=== PATIENT | female | born 1940 | race Caucasian/White ===

== ENCOUNTER → 2016-05-24 | Outpatient (CLI) | payer OTHER ==
[~2016-05-24] MED LIST: ESTR0.3T PO; LRT5 PO; SIMV20TA2 PO; TEMA30CA4 PO
[2016-05-24 17:50] LABS: ALT/SGPT 31 U/L (12-78); AST/SGOT 25 U/L (15-37); BLOOD UREA NITROGEN 12 mg/dl (7-18); CARBON DIOXIDE 27 mmol/L (21-32); CHLORIDE 103 mmol/L (98-107); CHOLESTEROL 185 mg/dl (0-200); CREATININE 0.71 mg/dl (0.60-1.20); GLUCOSE 92 mg/dl (70-99); POTASSIUM 4.3 mmol/L (3.5-5.1); SODIUM 137 mmol/L (136-145); TRIGLYCERIDES 123 mg/dl (0-150); VERY LOW DENSITY LIPOPROT CALC 25 mg/dl
[2016-05-24 17:53] LABS: ALB/GLOB RATIO 1.2 (0.9-2); ALKALINE PHOSPHATASE 71 U/L (45-117); CHOLESTEROL/HDL RATIO 2.6; HDL CHOLESTEROL 70 mg/dl; LDL CHOLESTEROL CALCULATED 90 mg/dl
[2016-05-25 06:20] LABS: ESTIMATED AVERAGE GLUCOSE 120 mg/dl; HA1C FLAG Normal (Normal)
== END | disposition home or self-care (01) ==
LOC: C.LABPVFM 10:39
PROVIDERS: ATTEND Nurse Practitioner Family
DX: I10 Essential (primary) hypertension (principal); R73.01 Impaired fasting glucose

== ENCOUNTER → 2016-06-11 | Outpatient (CLI) | payer OTHER | END | disposition home or self-care (01) | LOC: C.MAMM 09:00 | PROVIDERS: ATTEND Nurse Practitioner Family | DX: Z00.00 Encounter for general adult medical examination without abnormal findings (principal); M85.851 Other specified disorders of bone density and structure, right thigh; M85.852 Other specified disorders of bone density and structure, left thigh ==

== ENCOUNTER → 2016-11-25 | Outpatient (CLI) | payer OTHER ==
[2016-11-25 18:40] LABS: ALKALINE PHOSPHATASE 86 U/L (45-117); ALT/SGPT 29 U/L (12-78); AST/SGOT 21 U/L (15-37); BLOOD UREA NITROGEN 11 mg/dl (7-18); BUN/CREATININE RATIO 17.5 (10-20); CALCIUM 8.7 mg/dl (8.5-10.1); CARBON DIOXIDE 28 mmol/L (21-32); CHLORIDE 104 mmol/L (98-107); CREATININE 0.64 mg/dl (0.60-1.20); GLUCOSE 91 mg/dl (70-99); HDL CHOLESTEROL 50 mg/dl; POTASSIUM 4.2 mmol/L (3.5-5.1); SODIUM 137 mmol/L (136-145)
[2016-11-25 18:41] LABS: CHOLESTEROL 157 mg/dl (0-200); CHOLESTEROL/HDL RATIO 3.1; LDL CHOLESTEROL CALCULATED 79 mg/dl; TRIGLYCERIDES 138 mg/dl (0-150); VERY LOW DENSITY LIPOPROT CALC 28 mg/dl
[2016-11-26 06:05] LABS: ESTIMATED AVERAGE GLUCOSE 126 mg/dl; HA1C FLAG Normal (Normal)
== END | disposition home or self-care (01) ==
LOC: C.LABPVFM 10:53
PROVIDERS: ATTEND Neuromusculoskeletal Medicine & OMM
DX: Z00.00 Encounter for general adult medical examination without abnormal findings (principal); R73.09 Other abnormal glucose; E78.4 Other hyperlipidemia

== ENCOUNTER → 2017-05-27 | Outpatient (CLI) | payer OTHER ==
--- NOTE | 2017-05-27 10:28 | DIAGNOSTIC IMAGING REPORT ---
KUB CLINICAL HISTORY: Constipation. COMPARISON STUDY: None. FINDINGS: Cholecystectomy clips are noted. There is no evidence for a bowel obstruction. There is a moderate to large amount of stool within the colon. There is minimal stool within the rectum. A 3 mm right abdominal calcification could reflect a renal calculus. There is a suspected hiatal hernia. IMPRESSION: 1. No evidence for a bowel obstruction. 2. Moderate to large amount of stool within the colon with minimal stool within the rectum. 3. Suspected hiatal hernia. 4. Possible 3 mm right renal calculus. Electronically signed by: Mark Self M.D. 05/27/2017 10:27 AM Dictated Date/Time: 05/27/2017 10:25 AM
[2017-05-27 13:05] LABS: BLOOD UREA NITROGEN 14 mg/dl (7-18); CARBON DIOXIDE 27 mmol/L (21-32); CREATININE 0.67 mg/dl (0.60-1.20); GLUCOSE 91 mg/dl (70-99); POTASSIUM 4.4 mmol/L (3.5-5.1); SODIUM 138 mmol/L (136-145)
[2017-05-27 13:16] LABS: HEMOGLOBIN A1C 5.7 % (4.5-5.6)
== END | disposition home or self-care (01) ==
LOC: C.RADPV 09:54
PROVIDERS: ATTEND Nurse Practitioner
DX: K59.00 Constipation, unspecified (principal)

== ENCOUNTER → 2017-08-25 | Day surgery (SDC) | payer OTHER ==
[2017-08-13 13:59] VITALS: BMI 28.0
[~2017-08-25] VITALS: Ht 162.6 cm; Wt 74.1 kg
[~2017-08-25] MED LIST changes: -ESTR0.3T PO; +HYDR-4380 PO; +LACT10SO17 PO; +LIDOCAINE HCL 2% 2 ML VIAL (20MG/ML) ONE; +LINA1CAP PO; -LRT5 PO; +PROPOFOL IV EMULSION 10 MG/ML 20 ML VIAL ONE; -TEMA30CA4 PO; +ZOLP5TAB6 PO
--- NOTE | 2017-08-25 10:18 | Endo History and Physical ---
History & Physical Date of Service: August 25, 2017. Chief Complaint: Change in bowel habits Referring Physician: Vannessa Richardson History of Present Illness 76 yo CF who presents for colonoscopy secondary to change in bowel habits. Past Surgical History Hx Cardiac Surgery: No Hx Internal Defibrillator: No Hx Pacemaker: No Hx Abdominal Surgery: Yes (JULIETTE) Hx of Implantable Prosthesis: No Hx Cancer Surgery: No Hx Thoracic Surgery: No Hx Orthopedic: No Hx Urinary Tract Surgery: No Social History Smoking Status: Never Smoker Hx Substance Use: No Hx Alcohol Use: No Allergies Coded Allergies: Penicillins (Verified Allergy, Unknown, UNKNOWN, 08/25/17) Current Medications Reported Home Medications Medications Dose Route/Sig Max Daily Dose Days Date Category Hydrocodone/Acetaminophen (Hydrocodone-Acetaminophen) 1 Tab Tab 1-2 Tabs PO Q4 PRN 08/13/17 Reported Zolpidem Tartrate 5 Mg Tab 1 Tab PO HS PRN 30 08/13/17 Reported Zocor (Simvastatin) 20 Mg Tab 1 Tab PO DAILY 90 08/13/17 Reported Linzess (Linaclotide) 145 Mcg Cap 2 Cap PO DAILY 08/13/17 Reported Chronulac (Lactulose) 10 Gm/15 Ml Syrp 30 Ml PO TID 08/13/17 Reported Zocor (Simvastatin) 20 Mg Tab 20 Mg PO QPM 06/20/10 Reported Vital Signs Weight (Kilograms): 74.09 Height (Feet): 5 Height (Inches): 4 Physical Exam General Appearance: WD/WN, no apparent distress Respiratory/Chest: Auscultation: breath sounds normal Cardiovascular: Heart Auscultation: RRR Abdomen: Bowel Sounds: normal Inspection & Palpation: soft, non-distended, no tenderness, guarding & rebound Assessment and Plan Assessment: 76 yo CF who presents for colonoscopy secondary to change in bowel habits. Plan: Proceed with colonoscopy.
[2017-08-25 10:22] VITALS: Ht 162.6 cm; Wt 74.1 kg
--- NOTE | 2017-08-25 11:30 | Discharge Instructions ---
Endoscopy Patient Instructions Date / Procedure(s) Performed August 25, 2017. Colonoscopy Allergy Information Coded Allergies: Penicillins (Verified Allergy, Unknown, UNKNOWN, 08/25/17) Discharge Date / Findings August 25, 2017. Rectal mass s/p biopsies Diverticulosis Medication Instructions OK to resume all medications today as prescribed Reported Home Medications Medications Dose Route/Sig Max Daily Dose Days Date Category Hydrocodone/Acetaminophen (Hydrocodone-Acetaminophen) 1 Tab Tab 1-2 Tabs PO Q4 PRN 08/13/17 Reported Zolpidem Tartrate 5 Mg Tab 1 Tab PO HS PRN 30 08/13/17 Reported Linzess (Linaclotide) 145 Mcg Cap 2 Cap PO DAILY 08/13/17 Reported Chronulac (Lactulose) 10 Gm/15 Ml Syrp 30 Ml PO TID 08/13/17 Reported Zocor (Simvastatin) 20 Mg Tab 20 Mg PO QPM 06/20/10 Reported Provider Instructions Activity Restrictions - No exercising or heavy lifting for 24 hours. - Do not drink alcohol the day of the procedure. - Do not drive a car or operate machinery until the day after the procedure. - Do not make any important decisions or sign important papers in 24 hours after the procedure. Following Day: - Return to full activity which may include returning to work/school. Diet Start your diet with liquids and light foods (jello, soup, juice, toast). Then eat your usual diet if not nauseated. Treatment For Common After Affects For mild abdominal pain, bloating, or excessive gas: - Rest - Eat lightly - Lie on right side Follow-Up Information Follow-up with [facility] as scheduled Anesthesia Information What You Should Know You have had a procedure that required some medicine to reduce anxiety and discomfort. This treatment is called moderate sedation. After receiving the treatment, you may be sleepy, but you will be able to breathe on your own. The effects of the treatment may last for several hours. Follow these instructions along with Activity/Diet recommendations noted above: * Do NOT do anything where dizziness or clumsiness would be dangerous. * Rest quietly at home today, then you can be up and about tomorrow. * Have a responsible person stay with you the rest of today. * You may have had an I.V. today. If so, you may take the dressing off later today. Recommendations Call your doctor if: * Trouble breathing * Continuous vomiting for more than 24 hours * Temperature above 101 degrees * Severe abdominal pain or bloating * Pain not relieved by pain medicine ordered * There is increased drainage or redness from any incision * A large amount of rectal bleeding greater than 2-3 tablespoons. (If you had a polyp/s removed or have hemorrhoids, a small amount of blood - from the rectum is to be expected.) * You have any unanswered questions or concerns. IN THE EVENT OF A SERIOUS EMERGENCY, GO TO THE NEAREST EMERGENCY ROOM Your discharge instructions were prepared by provider Hieu Kimble. Patient Instructions Signature Page Laverne Dunn Patient (or Guardian) Signature/Date: I have read and understand the instructions given to me by my caregivers. Caregiver/RN/Doctor Signature/Date: The above-named patient and/or guardian has received patient instructions on this date. + Original Patient Signature Page (only) stays with chart. Please make copy for patient.
--- NOTE | 2017-08-25 11:41 | GI REPORT ---
Patient Name: Laverne Dunn Procedure Date: 08/25/2017 10:47 AM Date of : 1940 Admit Type: Outpatient Age: 76 Gender: Female Attending MD: Hieu Kimble DO Procedure: Colonoscopy Providers: Hieu Kimble DO Referring MD: Vannessa Richardson Indications: Change in bowel habits Medicines: Monitored Anesthesia Care Complications: No immediate complications. Estimated Blood Loss: Estimated blood loss: none. Procedure: Pre-Anesthesia Assessment: - Prior to the procedure, a History and Physical was performed, and patient medications and allergies were reviewed. The patient's tolerance of previous anesthesia was also reviewed. The risks and benefits of the procedure and the sedation options and risks were discussed with the patient. All questions were answered, and informed consent was obtained. Prior Anticoagulants: The patient has taken no previous anticoagulant or antiplatelet agents. ASA Grade Assessment: II - A patient with mild systemic disease. After reviewing the risks and benefits, the patient was deemed in satisfactory condition to undergo the procedure. After I obtained informed consent, the scope was passed under direct vision. Throughout the procedure, the patient's blood pressure, pulse, and oxygen saturations were monitored continuously. The scope was introduced through the anus and advanced to the terminal ileum. The colonoscopy was performed without difficulty. The patient tolerated the procedure well. The quality of the bowel preparation was good. The terminal ileum, ileocecal valve, appendiceal orifice, and rectum were photographed. Findings: The perianal and digital rectal examinations were normal. An infiltrative partially obstructing medium-sized mass was found in the rectum. The mass was non-circumferential. The mass measured five cm in length. In addition, its diameter measured thirty mm. Oozing was present. Biopsies were taken with a cold forceps for histology. Multiple small-mouthed diverticula were found in the sigmoid colon. 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 Biopsied. - Diverticulosis in the sigmoid colon. Recommendation: - Resume previous diet. - Continue present medications. - Await pathology results. - Return to primary care physician as previously scheduled. - Perform a CT scan (computed tomography) of chest with contrast, abdomen with contrast and pelvis with contrast at appointment to be scheduled. - Check liver enzymes (AST, ALT, alkaline phosphatase, bilirubin), hemogram with white blood cell count and platelets and CEA today. Heiu Cahy Kimble, DO 08/25/2017 11:40:25 AM This report has been signed electronically. Note Initiated On: 08/25/2017 10:47 AM Number of Addenda: 0 I attest to the content of the Intraoperative Record and orders documented therein, exceptions below {[id number]}
--- NOTE | 2017-08-25 11:45 | Anesthesiology Progress Note ---
Anesthesia Post Op Note Date & Time August 25, 2017 at 11:45 Vital Signs Pain Intensity: 0 Vital Signs Past 12 Hours Date Time Temp Pulse Resp B/P (MAP) Pulse Ox O2 Delivery O2 Flow Rate FiO2 08/25/17 11:38 63 16 117/58 (77) 98 Room Air 08/25/17 11:24 36.4 73 16 93/69 (77) 98 Room Air 08/25/17 10:29 36.4 68 16 125/74 (91) 98 Room Air Notes Mental Status: alert / awake / arousable, participated in evaluation Pt Amnestic to Procedure: Yes Nausea / Vomiting: adequately controlled Pain: adequately controlled Airway Patency, RR, SpO2: stable & adequate BP & HR: stable & adequate Hydration State: stable & adequate Anesthetic Complications: no major complications apparent
[2017-08-25 11:53] VITALS: BP 133/73; PULSE 55; O2SAT 97
[2017-08-25 13:13] LABS: BASO % 0.6 %; BASO ABS # 0.03 K/uL (0-0.2); EOS % 1.4 %; EOS ABS # 0.07 K/uL (0-0.5); HEMATOCRIT 41.4 % (37-47); IG# 0.01 K/uL (0.00-0.02); LYMPH % 33.9 %; LYMPH ABS # 1.71 K/uL (1.2-3.4); MEAN CELL VOLUME 90.6 fL (80-100); MEAN CORPUSCULAR HEMOGLOBIN 30.6 pg (25-34); MEAN CORPUSCULAR HGB CONC 33.8 g/dl (32-36); MEAN PLATELET VOLUME 9.4 fL (7.4-10.4); MONO % 7.1 %; MONO ABS # 0.36 K/uL (0.11-0.59); NEUT % 56.8 %; NEUT ABS # 2.86 K/uL (1.4-6.5); PLATELET COUNT 223 K/uL (130-400); RED CELL DISTRIBUTION WIDTH CV 14.7 % (11.5-14.5); RED CELL DISTRIBUTION WIDTH SD 48.5 fL (36.4-46.3); WHITE BLOOD COUNT 5.04 K/uL (4.8-10.8)
[2017-08-25 13:42] LABS: CALCIUM 8.8 mg/dl (8.5-10.1); CREATININE 0.66 mg/dl (0.60-1.20); POTASSIUM 3.8 mmol/L (3.5-5.1)
[2017-08-25 13:45] LABS: TOTAL PROTEIN 7.2 gm/dl (6.4-8.2)
== END | disposition home or self-care (01) ==
LOC: C.GI 09:44
PROVIDERS: ATTEND Internal Medicine
DX: R19.4 Change in bowel habit (principal); K62.9 Disease of anus and rectum, unspecified; K57.30 Diverticulosis of large intestine without perforation or abscess without bleeding; E78.5 Hyperlipidemia, unspecified; K21.9 Gastro-esophageal reflux disease without esophagitis; M19.90 Unspecified osteoarthritis, unspecified site; F32.9 Major depressive disorder, single episode, unspecified; Z88.0 Allergy status to penicillin; Z90.49 Acquired absence of other specified parts of digestive tract

== ENCOUNTER → 2017-08-27 | Outpatient (CLI) | payer OTHER ==
[~2017-08-27] MED LIST changes: -LIDOCAINE HCL 2% 2 ML VIAL (20MG/ML) ONE; +OPTIRAY 320 IV PRN; -PROPOFOL IV EMULSION 10 MG/ML 20 ML VIAL ONE
--- NOTE | 2017-08-27 16:25 | DIAGNOSTIC IMAGING REPORT ---
CHEST CT WITH CONTRAST CT DOSE: 886.42 mGy.cm HISTORY: Rectal mass. Assess for metastatic disease. TECHNIQUE: Multiaxial CT images of the chest were performed following the intravenous administration of contrast. A dose lowering technique was utilized adhering to the principles of ALARA. COMPARISON: None. FINDINGS: Mild motion artifact. No pleural effusions. No pneumothorax. A 2.5 cm bilobed left within the right medial lung apex. An 8 mm basilar nodule within the left lower lobe on image 199. Otherwise, the lungs are clear. The central airways are patent. No suspicious lytic or blastic osseous lesions. Large hiatus hernia containing the majority of the stomach. Normal caliber thoracic aorta. The heart is normal in size. The main pulmonary arteries are patent. No mediastinal or hilar lymphadenopathy. Calcified right infrahilar lymph nodes. IMPRESSION: 1. Indeterminate 8 mm nodule within the left lower lobe. If the patient has a history of malignancy recommend PET/CT to evaluate for a metastatic nodule. In addition, please refer to the chart below for recommended follow-up. 2. Large hiatus hernia. 3. Please refer to the same day abdomen and pelvis CT for further evaluation of the abdominal structures. Electronically signed by: Good Blevins M.D. 08/27/2017 4:24 PM Dictated Date/Time: 08/27/2017 4:15 PM
--- NOTE | 2017-08-27 16:35 | DIAGNOSTIC IMAGING REPORT ---
ABDOMEN AND PELVIS CT WITH IV AND ORAL CONTRAST CT DOSE: HISTORY: RECTAL MASS TECHNIQUE: Multiaxial CT images of the abdomen and pelvis were performed following the use of intravenous and oral contrast. A dose lowering technique was utilized adhering to the principles of ALARA. COMPARISON STUDY: None. FINDINGS: Large hiatus hernia. 8 mm nodule at the base of the left lower lobe on image 48. No pneumoperitoneum. No pneumatosis. No suspicious lytic or blastic osseous lesions. Cholecystectomy. A 7 mm hypodense lesion within the right hepatic lobe on image 59. This is too small to characterize. Multiple calcified granulomas within the spleen. The adrenal glands and pancreas are unremarkable. Mildly dilated, bile duct at 1 cm. This is likely due to the patient's postcholecystectomy state. No hydronephrosis. The left kidney enhances normally. A 6 mm hypodense lesion within the right kidney which is also too small to characterize. No retroperitoneal lymphadenopathy. A few subcentimeter mesenteric lymph nodes. Dominant mesenteric lymph node measures 14 x 7 mm. Normal bladder. A pessary device is present. The uterus is surgically absent. Small fat-containing left inguinal hernia. No inguinal lymphadenopathy. Abnormal thickening and enhancement within the rectum this measures approximately 8 cm and likely corresponds the patient's history of a rectal mass. There are few subcentimeter perirectal lymph nodes on the left with the largest measuring 6 mm. Colonic diverticulosis. No evidence for bowel obstruction. Normal appendix. IMPRESSION: 1. Focal area of abnormal thickening and enhancement within the rectum measuring approximate 8 cm in length. This likely represents the patient's history of a rectal mass. There are few adjacent subcentimeter perirectal lymph nodes. 2. An 8 mm nodule within the left lower lobe. Metastatic disease cannot be excluded. 3. There are 6 mm hypodense lesions within the right hepatic lobe and within the right kidney. These are too small to characterize. 4. Large hiatus hernia. 5. A single prominent mesenteric lymph node measuring 15 x 7 mm. This bears watching future examinations. Electronically signed by: Good Blevins M.D. 08/27/2017 4:34 PM Dictated Date/Time: 08/27/2017 4:25 PM
== END | disposition home or self-care (01) ==
LOC: C.CTS 13:45
PROVIDERS: ATTEND Internal Medicine
DX: K62.9 Disease of anus and rectum, unspecified (principal); R91.1 Solitary pulmonary nodule; K44.9 Diaphragmatic hernia without obstruction or gangrene

== ENCOUNTER 2021-01-26 17:00 | Inpatient (IN) ==
[2021-01-26] MEDS ORDERED: SODIUM CHLORIDE 0.9% 1000ML 1,000 ML IV STA (17:57)
[2021-01-26] MEDS ORDERED: SODIUM CHLORIDE 0.9% 1000ML 500 ML IV ONE (17:57)
[2021-01-26] MEDS ORDERED: ONDANSETRON INJ 2 MG/ML 2 ML VIAL IV STA (17:57)
[2021-01-26] MEDS ORDERED: HYDROmorphone INJ 0.5 MG/0.5 ML SYR IV PRN (18:03)
--- NOTE | 2021-01-26 18:37 | History & Physical Report ---
Date of Service January 26, 2021 Assessment & Plan (1) Incisional hernia with bowel obstruction: Plan: Reduced by surgery in the ER. Currently non-painful over area although difficult to say how much her pain medication are affecting her. Consult surgery NPO. IV fluids. No NG tube needed at present time Acetaminophen for pain, Ondansetron for nausea (2) Acute hyponatremia: Plan: Suspect poor nutritional intake. Appears hypovolemic on exam. Continue NSS @ 125 ml/hr Repeat BMP in AM (3) History of reversal of ileostomy: Plan: Noted (4) Hyperlipidemia: Plan: Holding simvastatin as NPO at the present time (5) Constipation: Plan: Holding Trulance due to bowel obstruction as above Plan: VTE Prophylaxis - SCDs Diet - NPO Disposition - admit to med/surg Admission and Anticipated Discharge Date Admission Date: January 26, 2021 History of Present Illness Chief Complaint: Abnormal outpatient CT Primary Care Provider: EMI Wilde Laverne Dunn is a 80 year old female who presents to the ER after an abnormal outpatient CT. She has been having increasing problems with her chronic cons tipation over the last 2 days with increasing right lower quadrant abdominal pain. She is taking Trulance, fiber and milk of magnesia but last normal bowel movement was 2 days ago. She reports usually coffee causes a bowel movement but not on this occasion. Due to her known abdominal hernia her PCP organized and outpatient CT when she called earlier today. This was concerning for a colonic bowel obstruction therefore she was sent to the ER for further workup. Her abdominal pain started this morning around 10am, right lower quadrant over incisional hernia site, no radiation, severity 10/10 at worst, currently 0/10 after Dilaudid given in the ER. She denies any nausea or vomiting. She was referred to medicine for admission and ongoing management of colonic obstruction. The patient was seen and examined in the ER in collaboration with Dr Leon. Allergies Allergy/AdvReac Type Severity Reaction Status Date / Time Penicillins Allergy Unknown unsure of Verified 01/26/21 18:24 reaction Home Medications Medication Instructions Recorded Confirmed Type simvastatin 20 mg tablet 20 mg PO DAILY #90 tab 01/13/20 01/26/21 Rx plecanatide 3 mg tablet (Trulance) 3 mg PO DAILY PRN 01/26/21 01/26/21 History Past Med/Surg History Medical History (Updated 01/26/21 @ 22:42 by Justin Rodriguez MD) Constipation REASON FOR TRULANCE Cystocele, midline History of colon cancer Hyperlipidemia Incisional hernia with bowel obstruction Surgical History (Updated 01/26/21 @ 19:01 by Mickey Leon DO, FACS) History of bilateral breast reduction surgery History of cataract surgery RT History of cholecystectomy History of colon resection WITH COLOSTOMY History of colonoscopy History of colostomy reversal History of foot surgery RT FOOT TOE SURGERY History of hysterectomy History of ileostomy History of low anterior resection of rectum History of reversal of ileostomy History of surgery Anterior Colporrhaphy, repair of cystocele History of tooth extraction Family History Brother Myocardial infarction Sister Myocardial infarction Family history of diabetes mellitus Father Myocardial infarction Other No family history of adverse response to anesthesia Denies family history of Ovarian cancer Prostate cancer Crohn's disease Breast cancer Colorectal cancer Ulcerative colitis Social History Smoking Status: Never smoker Second Hand Exposure: No; Hx Alcohol Use: No Hx Substance Use: No Preferred Language: Burmese Communication Ability: Effective Inspector Eyeglass Required: No Beliefs That Will Affect Care: None marital status: Current Living Situation: Spouse and Family Current Living Situation Comment: lives with , son and grandson current occupational status: retired Other Information That Helps Us Care for You: No Feels Safe at Home: Yes Safety Concerns: Feels Safe At This Time Childhood Exposure to Second-Hand Smoke: No caffeine: Yes Dental Care, Regularly: No Physical Activity Frequency: Does not Exercise Seatbelt Use: always Sunscreen Use: No Assistive Devices: Denture - Upper, Denture - Lower and Glasses Review of Systems Review of Systems: All systems reviewed & are unremarkable except as noted in HPI & below Physical Exam Constitutional: WD/WN, vitals as above Eyes: + anicteric sclerae; normal pupil size ENMT: Mouth: + dry oral mucous membranes Respiratory: normal respiratory effort, lungs clear to auscultation Cardiovascular: RRR, no murmur, no edema Gastrointestinal (Abdomen): Inspection/Auscultation: normal bowel sounds and + visible herniation Percussion/Palpation: abdomen soft and + hernia (reducible RLQ); abdomen nontender, no guarding and abdomen not rigid Musculoskeletal: no cyanosis or clubbing, extremities motor strength 5/5 Skin: no rashes, warm and dry Neurologic: moves all extremities and awake; no focal motor deficits (no lateralizing) and not confused Psychiatric: A+Ox3, euthymic affect Results & Data Results & Data ([facility]) Vital Signs (Past 12 Hours) Vital Signs Temp Pulse Resp BP Pulse Ox 01/26/21 17:14 35.5 C L 77 19 144/73 H 93 Diagnostic Findings XR chest 1V portable CLINICAL HISTORY: Preoperative evaluation. COMPARISON STUDY: Chest radiograph February 18, 2019. FINDINGS: Lung volumes are normal. Lungs are clear. There is no pneumothorax or pleural effusion. Cardiac size is normal. Mediastinal contours are normal. There is no evidence for pulmonary edema. A large hiatal hernia is noted with partially intrathoracic stomach. IMPRESSION: 1. No acute cardiopulmonary findings. 2. Large hiatal hernia with partially intrathoracic stomach. CT OF THE ABDOMEN AND PELVIS WITH CONTRAST CLINICAL HISTORY: R10.9 - Unspecified abdominal pain. COMPARISON STUDY: CT of the abdomen and pelvis August 15, 2020. TECHNIQUE: Following IV administration of 95 mL of Optiray, axial images of the abdomen and pelvis were obtained from the lung bases to the proximal femurs. Images were reviewed in the axial, sagittal, and coronal planes. IV contrast was administered without complication. Automated exposure control was utilized for the study. A dose lowering technique was utilized adhering to the principles of ALARA. Oral contrast was administered. CT DOSE: 779.03 mGycm FINDINGS: Lung bases are unremarkable. Note is made of a large hiatal hernia with partially intrathoracic stomach. This is similar to prior exam. No pneumatosis, free air or portal venous gas is present. Biliary ductal dilatation is unchanged and likely related to cholecystectomy. Moderate left renal atrophy is present. There is no hydronephrosis. There is no peripancreatic infiltration. There are calcified granulomas within the spleen. Note is made of a lower abdominal ventral hernia which contains multiple loops of small bowel. This does not result in a bowel obstruction. Small bowel anastomosis within the lower abdomen is noted. There are postsurgical findings within the rectum. Note is made of a right lower abdominal wall hernia which contains the cecum, terminal ileum and portion of the transverse colon. Multiple large and small bowel transition points are noted. This results in colonic obstruction at 2 sites. This also likely results in a small bowel obstruction. There is upstream dilatation and stool within the ascending colon and proximal transverse colon consistent with colonic obstruction. There is also stool within the herniated portion of the transverse colon. The cecum is distended and fluid-filled. There is mild infiltration within the hernia sac. The distal small bowel is also mildly distended and fluid-filled proximal to the hernia. Major vasculature is patent. No acute fracture or suspicious lesion is identified within visualized skeletal structures. IMPRESSION: 1. Right lower quadrant abdominal wall hernia which contains the cecum, terminal ileum and portion of the transverse colon. This hernia results in colonic obstruction at 2 sites and a probable distal small bowel obstruction. Surgical consultation is recommended. These findings will be called/faxed to the ordering provider at time of dictation. 2. Additional lower abdominal ventral hernia which contains multiple small bowel loops. This midline hernia does not result in a bowel obstruction. 3. Large hiatal hernia with partially intrathoracic stomach. Medications Administered ER Medications Given: NSS 500ml bolus then 125 ml/hr Ondansetron 4mg IV Dilaudid 0.25mg IV Code Status & VTE Plan Code Status Full VTE Prophylaxis Plan VTE Prophylaxis will be ordered: No PG Care Time/CCT Total # of Minutes Spent Total Time Spent with Patient: Total time spent is greater than 50% in coordination of care (as documented) at patient's floor/unit and/or counseling patient: Coding Level of Care Code 56970 Initial Inpt Care Lvl 3 Diagnoses Incisional hernia with bowel obstruction K43.0 History of reversal of ileostomy Z98.890 Hyperlipidemia E78.5 Constipation K59.01 Constipation type: slow transit constipation Acute hyponatremia E87.1 (1) Constipation Constipation type: slow transit constipation Qualified Code(s): K59.01 - Slow transit constipation
[2021-01-26 18:47] LABS: Basophils # (auto) 0.01 K/uL (0-0.2); Basophils % (auto) 0.1 %; Eosinophils # (auto) 0.01 K/uL (0-0.5); Eosinophils % (auto) 0.1 %; Hematocrit (blood only) 39.6 % (37-47); Hemoglobin 13.1 g/dL (12.0-16.0); Immature Granulocytes # (auto) 0.02 K/uL (0.00-0.02); Immature Granulocytes % (auto) 0.2 %; Lymphocytes # (auto) 1.48 K/uL (1.2-3.4); Lymphocytes % (auto) 16.4 %; Mean Corpuscular Hemoglobin 30.5 pg (25-34); Mean Corpuscular Hgb Conc 33.1 g/dL (32-36); Mean Corpuscular Volume 92.3 fL (80-100); Mean Platelet Volume 9.2 fL (7.4-10.4); Monocytes # (auto) 0.41 K/uL (0.11-0.59); Monocytes % (auto) 4.6 %; Neutrophils # (auto) 7.08 K/uL (1.4-6.5); Neutrophils % (auto) 78.6 %; Platelet Count 244 K/uL (130-400); RDW Standard Deviation 47.5 fL (36.4-46.3); Red Blood Count 4.29 M/uL (4.2-5.4); White Blood Count 9.01 K/uL (4.8-10.8)
--- NOTE | 2021-01-26 19:02 | Surgery Consultation ---
Date of Consultation January 26, 2021 Assessment & Plan (1) Incisional hernia with bowel obstruction: 80 y/o female with known incisional hernias at low midline and RLQ prior ostomy site. CT showed RLQ hernia with obstruction. Able to easily reduce though quickly recurs. No e/o strangulation. Also with known constipation issues on Trulance since LAR. No emergency surgery indicated at this time admit to medicine KUB in am NPO, IVF"s surgery will follow would recommend surgical repair either this stay or as outpatient if resolves (2) History of low anterior resection of rectum: (3) History of ileostomy: (4) History of reversal of ileostomy: (5) Hypertension: (6) Hyperlipidemia: (7) Constipation: History of Present Illness Reason for Consultation: hernia with bowel obstruction History of Present Illness 80 y/o female here for hernia with obstruction. Underwent LAR with [facility]LI [place] [address] [place] at [facility] for high grade polyp. No chemo or radiation per patient. Ileostomy taken down 2 months post op. Has had constipation since then. Hasn't had BM for a few days, tried coffee, fiber, and MOM. Passing flatus. No vomiting, some pain earlier but gone. Known hernias at ostomy site and low midline. Had CT as outpatient with hernias, RLQ hernia with large and small bowel obstructions. No blood thinners. Allergies Allergy/AdvReac Type Severity Reaction Status Date / Time Penicillins Allergy Unknown unsure of Verified 01/26/21 18:24 reaction Home Medications Medication Instructions Recorded Confirmed Type simvastatin 20 mg tablet 20 mg PO DAILY #90 tab 01/13/20 01/26/21 Rx plecanatide 3 mg tablet (Trulance) 3 mg PO DAILY PRN 01/26/21 01/26/21 History Patient History Medical History (Updated 01/26/21 @ 19:01 by Mickey Leon DO, FACS) Constipation REASON FOR TRULANCE Cystocele, midline History of colon cancer Hyperlipidemia Incisional hernia with bowel obstruction Surgical History (Updated 01/26/21 @ 19:01 by Mickey Leon DO, FACS) History of bilateral breast reduction surgery History of cataract surgery RT History of cholecystectomy History of colon resection WITH COLOSTOMY History of colonoscopy History of colostomy reversal History of foot surgery RT FOOT TOE SURGERY History of hysterectomy History of ileostomy History of low anterior resection of rectum History of reversal of ileostomy History of surgery Anterior Colporrhaphy, repair of cystocele History of tooth extraction Family History Brother Myocardial infarction Sister Myocardial infarction Family history of diabetes mellitus Father Myocardial infarction Other No family history of adverse response to anesthesia Denies family history of Ovarian cancer Prostate cancer Crohn's disease Breast cancer Colorectal cancer Ulcerative colitis Social History Smoking Status: Never smoker Second Hand Exposure: No; Hx Alcohol Use: No Hx Substance Use: No Preferred Language: Italian Communication Ability: Effective Product Manufacturing Professional Required: No Beliefs That Will Affect Care: None marital status: Current Living Situation: Family Current Living Situation Comment: AND SON current occupational status: retired Feels Safe at Home: Yes Childhood Exposure to Second-Hand Smoke: No caffeine: Yes Dental Care, Regularly: No Physical Activity Frequency: Does not Exercise Seatbelt Use: always Sunscreen Use: No Assistive Devices: Denture - Upper, Denture - Lower and Glasses Review of Systems Review of Systems: All systems reviewed & are unremarkable except as noted in HPI & below Physical Exam Constitutional: WD/WN, vitals as above Respiratory: normal respiratory effort, lungs clear to auscultation Cardiovascular: RRR, no murmur, no edema Gastrointestinal (Abdomen): normal bowel sounds, soft, nontender, no hepatosplenomegaly Inspection/Auscultation: + abdominal surgical scar (low midline and RLQ) Percussion/Palpation: + hernia (able to reduce RLQ hernia, though recurred. ) No strangulation or incarceration. Mildine hernia reduces as well but recurs. Results & Data ([facility]) Vital Signs (Past 12 Hours) Vital Signs Temp Pulse Resp BP Pulse Ox 01/26/21 17:14 35.5 C L 77 19 144/73 H 93 Laboratory Results Laboratory Results - last 24 hr 01/26/21 01/26/21 01/26/21 18:30 18:30 18:30 WBC 9.01 RBC 4.29 Hgb 13.1 Hct 39.6 MCV 92.3 MCH 30.5 MCHC 33.1 RDW Std Deviation 47.5 H RDW Coeff of Melany 14.0 Plt Count 244 MPV 9.2 Immature Gran % (Auto) 0.2 Neut % (Auto) 78.6 Lymph % (Auto) 16.4 [place] % (Auto) 4.6 Eos % (Auto) 0.1 Baso % (Auto) 0.1 Neut # (Auto) 7.08 H Lymph # (Auto) 1.48 [place] # (Auto) 0.41 Eos # (Auto) 0.01 Baso # (Auto) 0.01 Immature Gran # (Auto) 0.02 Sodium Pending Potassium Pending Chloride Pending Carbon Dioxide Pending Anion Gap Pending BUN Pending Creatinine Pending Est Cr Clr Drug Dosing Pending Est GFR ( Amer) Pending Est GFR (Non-Af Amer) Pending BUN/Creatinine Ratio Pending Glucose Pending Calcium Pending Total Bilirubin Pending AST Pending ALT Pending Alkaline Phosphatase Pending Total Protein Pending Albumin Pending Globulin Pending Albumin/Globulin Ratio Pending Lipase Pending COVID-19 Eval Order Covid19 at [facility] SARS-CoV-2 (PCR) 01/26/21 18:30 WBC RBC Hgb Hct MCV MCH MCHC RDW Std Deviation RDW Coeff of Melany Plt Count MPV Immature Gran % (Auto) Neut % (Auto) Lymph % (Auto) [place] % (Auto) Eos % (Auto) Baso % (Auto) Neut # (Auto) Lymph # (Auto) [place] # (Auto) Eos # (Auto) Baso # (Auto) Immature Gran # (Auto) Sodium Potassium Chloride Carbon Dioxide Anion Gap BUN Creatinine Est Cr Clr Drug Dosing Est GFR ( Amer) Est GFR (Non-Af Amer) BUN/Creatinine Ratio Glucose Calcium Total Bilirubin AST ALT Alkaline Phosphatase Total Protein Albumin Globulin Albumin/Globulin Ratio Lipase COVID-19 Eval Order SARS-CoV-2 (PCR) Pending Diagnostic Findings Personally reviewed the CT, agree with ostomy site hernia with colon and fluid filled cecum, and midline hernia with small bowel and no obstruction. Besides fluid filled colon, hernias appear relatively unchanged. CT OF THE ABDOMEN AND PELVIS WITH CONTRAST CLINICAL HISTORY: R10.9 - Unspecified abdominal pain. COMPARISON STUDY: CT of the abdomen and pelvis August 15, 2020. TECHNIQUE: Following IV administration of 95 mL of Optiray, axial images of the abdomen and pelvis were obtained from the lung bases to the proximal femurs. Images were reviewed in the axial, sagittal, and coronal planes. IV contrast was administered without complication. Automated exposure control was utilized for the study. A dose lowering technique was utilized adhering to the principles of ALARA. Oral contrast was administered. CT DOSE: 779.03 mGycm FINDINGS: Lung bases are unremarkable. Note is made of a large hiatal hernia with partially intrathoracic stomach. This is similar to prior exam. No pneumatosis, free air or portal venous gas is present. Biliary ductal dilatation is unchanged and likely related to cholecystectomy. Moderate left renal atrophy is present. There is no hydronephrosis. There is no peripancreatic infiltration. There are calcified granulomas within the spleen. Note is made of a lower abdominal ventral hernia which contains multiple loops of small bowel. This does not result in a bowel obstruction. Small bowel anastomosis within the lower abdomen is noted. There are postsurgical findings within the rectum. Note is made of a right lower abdominal wall hernia which contains the cecum, terminal ileum and portion of the transverse colon. Multiple large and small bowel transition points are noted. This results in colonic obstruction at 2 sites. This also likely results in a small bowel obstruction. There is upstream dilatation and stool within the ascending colon and proximal transverse colon consistent with colonic obstruction. There is also stool within the herniated portion of the transverse colon. The cecum is distended and fluid-filled. There is mild infiltration within the hernia sac. The distal small bowel is also mildly distended and fluid-filled proximal to the hernia. Major vasculature is patent. No acute fracture or suspicious lesion is identified within visualized skeletal structures. IMPRESSION: 1. Right lower quadrant abdominal wall hernia which contains the cecum, terminal ileum and portion of the transverse colon. This hernia results in colonic obstruction at 2 sites and a probable distal small bowel obstruction. Surgical consultation is recommended. These findings will be called/faxed to the ordering provider at time of dictation. 2. Additional lower abdominal ventral hernia which contains multiple small bowel loops. This midline hernia does not result in a bowel obstruction. 3. Large hiatal hernia with partially intrathoracic stomach. PG Care Time/CCT Total # of Minutes Spent Total Time Spent with Patient: Total time spent is greater than 50% in coordination of care (as documented) at patient's floor/unit and/or counseling patient: Coding Level of Care Code 95836 Office/Outpt Visit, New Diagnoses History of low anterior resection of rectum Z90.49 History of ileostomy Z98.890 History of reversal of ileostomy Z98.890 Incisional hernia with bowel obstruction K43.0 Hypertension I10 Hyperlipidemia E78.5 Constipation K59.01 Constipation type: slow transit constipation Time Spent (min) 60 (1) Constipation Constipation type: slow transit constipation Qualified Code(s): K59.01 - Slow transit constipation
[2021-01-26 19:12] LABS: Alanine Aminotransferase 25 U/L (12-78); Albumin Level 3.8 gm/dl (3.4-5.0); Aspartate Aminotransferase 21 U/L (15-37); BUN Creatinine Ratio 17.6 (10-20); Blood Urea Nitrogen 13 mg/dl (7-18); Calcium 8.9 mg/dl (8.5-10.1); Carbon Dioxide 26 mmol/L (21-32); Chloride 96 mmol/L (98-107); Est GFR (African American) 89.9 ml/min; Est GFR (Non-African American) 77.6 ml/min; Glucose 106 mg/dl (70-99); Lipase 127 U/L (73-393); Potassium 3.8 mmol/L (3.5-5.1); Sodium 128 mmol/L (136-145)
[2021-01-26 19:14] LABS: Albumin Globulin Ratio 1.1 (0.9-2); Alkaline Phosphatase 83 U/L (45-117); Bilirubin,Total 0.7 mg/dl (0.2-1); Globulin 3.4 gm/dl (2.5-4.0); Total Protein 7.2 gm/dl (6.4-8.2)
--- NOTE | 2021-01-26 19:56 | XRay Report ---
XR chest 1V portable CLINICAL HISTORY: Preoperative evaluation. COMPARISON STUDY: Chest radiograph February 18, 2019. FINDINGS: Lung volumes are normal. Lungs are clear. There is no pneumothorax or pleural effusion. Car diac size is normal. Mediastinal contours are normal. There is no evidence for pulmonary edema. A lar ge hiatal hernia is noted with partially intrathoracic stomach. IMPRESSION: 1. No acute cardiopulmonary findings. 2. Large hiatal hernia with partially intrathoracic stomach. ACT 112: Negative or not required by law. Electronically signed by: Mark Self M.D. 01/26/2021 7:55 PM
[2021-01-26] MEDS ORDERED: ONDANSETRON INJ 2 MG/ML 2 ML VIAL IV PRN (21:54)
[2021-01-26] MEDS: SODIUM CHLORIDE 0.9% 1000ML 1,000 ML IV SCH (22:17)
--- NOTE | 2021-01-26 23:24 | Emergency Department Note ---
Impression & Plan Incisional hernia with bowel obstruction, Generalized abdominal pain, Nausea, Acute hyponatremia ED Provider Note INFORMANT: Patient ED PROVIDER(S): Keegan Conner MD CHIEF COMPLAINT: Abdominal pain PLAN: Disposition: Admitted Condition: Good Outpatient prescription management: none Referral: None MEDICAL DECISION MAKING: Patient presented due to outpatient imaging revealing chronic obstruction and small obstruction. She was evaluated. She was treated for nausea and pain. Patient's blood work revealed hyponatremia. CBC and LFTs were unremarkable. ECG did not show any acute findings. Further management in the hospital will be necessary. consult with Dr. Leon with general surgery. Evaluated patient in the ER. Also consulted with Dr. rodriguez of the hospitalist service. Admitted for further management. Triage Nursing notes reviewed and agree them. Vital Signs: reviewed and remarkable for no significant abnormalities Differential diagnosis: Incarcerated hernia, small bowel obstruction, appendicitis, ovarian pathology, infections, diverticulitis, UTI, mesenteric ischemia, aortic pathology, inflammatory bowel disease, renal colic, PUD, pancreatitis, biliary pathology, volvulus, constipation, as well as other pathologies. Diagnostics interpreted by me: ECG: Twelve-lead ECG reveals sinus bradycardia 58 bpm. Right bundle branch block. Nonspecific ST. Poor baseline data. Cardiac Monitoring: Cardiac monitoring ordered by me: The patient was placed on continuous cardiac monitoring and observed. It revealed a normal sinus rhythm at 66 beats per minute without ectopy or evidence of dysrhythmia. HPI: The patient is a 80 year old female who presents to the Emergency Room with complaints of abdominal pain. This started today and is worsening. The patient had an outpatient CT scan and it showed a colonic obstruction as well as small bowel obstruction from hernia. She was directed directly to the ER. The patient also notes the following associated symptoms, nausea. The patient has found no relieving factors. Current pain is rated as 6/10. Pt denies LOC, headache, fevers, chills, diaphoresis, visual changes, neck pain, chest pain, breathing difficulties, vomiting, back pain, melena, hematochezia, urinary symptoms, numbness, weakness, lymphadenopathy, rash, or other complaints. ROS: See above HPI for pertinent positives & negatives. A total of 10 systems reviewed and were otherwise negative. PAST MEDICAL HISTORY:See Below , cancer of the colon PAST SURGICAL HISTORY:See Below, FAMILY HISTORY:See Below SOCIAL HISTORY:Retired, HOME MEDICATIONS:See Below ALLERGIES:See Below VITALS:See Below PHYSICAL EXAMINATION: GENERAL: Awake, alert, uncomfortable-appearing, in no distress HENT: Normocephalic, atraumatic. Oropharynx unremarkable. EYES: Normal conjunctiva. Sclera non-icteric. NECK: Inspection normal. Non-tender. Supple. No nuchal rigidity. FROM. No masses. RESPIRATORY: Clear to auscultation. No wheezes. No rales. Normal respiratory effort. CARDIAC: Normal rate. Normal rhythm. No murmurs. No rubs. Extremities warm and well perfused. Pulses equal. No JVD. GI: Soft, mildly-distended. Lower tenderness to palpation. No rebound or guarding. Moderate size hernia present in the right lower side of the abdomen. RECTAL: Deferred. MUSCULOSKELETAL: Atraumatic. Chest examination reveals no tenderness. The back is symmetrical on inspection without obvious abnormality. There is no CVA tenderness to palpation. No joint edema. LOWER EXTREMITIES: Calves are equal size bilaterally and non-tender. No edema. No discoloration. NEURO: Normal sensorium. No sensory or motor deficits noted. SKIN: No rash or jaundice noted. Keegan Conner MD Past Med/Surg History Medical History (Updated 01/26/21 @ 22:42 by Justin Rodriguez MD) Constipation REASON FOR TRULANCE Cystocele, midline History of colon cancer Hyperlipidemia Incisional hernia with bowel obstruction Surgical History (Updated 01/26/21 @ 19:01 by Mickey Leon DO, FACS) History of bilateral breast reduction surgery History of cataract surgery RT History of cholecystectomy History of colon resection WITH COLOSTOMY History of colonoscopy History of colostomy reversal History of foot surgery RT FOOT TOE SURGERY History of hysterectomy History of ileostomy History of low anterior resection of rectum History of reversal of ileostomy History of surgery Anterior Colporrhaphy, repair of cystocele History of tooth extraction Family History Brother Myocardial infarction Sister Myocardial infarction Family history of diabetes mellitus Father Myocardial infarction Other No family history of adverse response to anesthesia Denies family history of Ovarian cancer Prostate cancer Crohn's disease Breast cancer Colorectal cancer Ulcerative colitis Social History Smoking Status: Never smoker Second Hand Exposure: No; Hx Alcohol Use: No Hx Substance Use: No Preferred Language: Yakut Communication Ability: Effective Science Technicians Required: No Beliefs That Will Affect Care: None marital status: Current Living Situation: Spouse and Family Current Living Situation Comment: lives with , son and grandson current occupational status: retired Other Information That Helps Us Care for You: No Feels Safe at Home: Yes Safety Concerns: Feels Safe At This Time Childhood Exposure to Second-Hand Smoke: No caffeine: Yes Dental Care, Regularly: No Physical Activity Frequency: Does not Exercise Seatbelt Use: always Sunscreen Use: No Assistive Devices: Denture - Upper, Denture - Lower and Glasses Allergies Allergies Allergy/AdvReac Type Severity Reaction Status Date / Time Penicillins Allergy Unknown unsure of Verified 01/26/21 18:24 reaction Home Meds Home Medications Medication Instructions Recorded Confirmed plecanatide 3 mg tablet (Trulance) 3 mg PO DAILY PRN 01/26/21 01/26/21 Previous Rx's Medication Instructions Recorded simvastatin 20 mg tablet 20 mg PO DAILY #90 tab 01/13/20 Results & Data (ED) Vital Signs Vital Signs - 24 hr 01/26/21 17:14 01/26/21 18:58 01/26/21 19:07 Temperature 35.5 C L Temperature Source Temporal Artery Scan Pulse Rate 77 80 68 Pulse Rate [Apical] 80 Pulse Rhythm Regular Respiratory Rate 19 17 Respiratory Effort / Characteristics Non-Labored Respiratory Depth Normal Blood Pressure 144/73 H Blood Pressure [Left Arm] 160/100 H Blood Pressure Mean 96 Blood Pressure Mean [Left Arm] 120 Pulse Oximetry 93 96 96 Oxygen Delivery Method Room Air Room Air Room Air Sepsis Recent Fever Within 48 Hours No Sepsis New/Unexplained Change in Mental Status N/A Sepsis Action Taken by Nursing No Action Required Laboratory Data Result diagrams: 01/27/21 05:15 01/27/21 05:15 Lab Results 01/26/21 01/26/21 01/26/21 Range/Units 18:30 18:30 18:30 WBC 9.01 (4.8-10.8) K/uL RBC 4.29 (4.2-5.4) M/uL Hgb 13.1 (12.0-16.0) g/dL Hct 39.6 (37-47) % MCV 92.3 (80-100) fL MCH 30.5 (25-34) pg MCHC 33.1 (32-36) g/dL RDW Std Deviation 47.5 H (36.4-46.3) fL RDW Coeff of Melany 14.0 (11.5-14.5) % Plt Count 244 (130-400) K/uL MPV 9.2 (7.4-10.4) fL Immature Gran % (Auto) 0.2 % Neut % (Auto) 78.6 % Lymph % (Auto) 16.4 % [place] % (Auto) 4.6 % Eos % (Auto) 0.1 % Baso % (Auto) 0.1 % Neut # (Auto) 7.08 H (1.4-6.5) K/uL Lymph # (Auto) 1.48 (1.2-3.4) K/uL [place] # (Auto) 0.41 (0.11-0.59) K/uL Eos # (Auto) 0.01 (0-0.5) K/uL Baso # (Auto) 0.01 (0-0.2) K/uL Immature Gran # (Auto) 0.02 (0.00-0.02) K/uL Sodium 128 L (136-145) mmol/L Potassium 3.8 (3.5-5.1) mmol/L Chloride 96 L (98-107) mmol/L Carbon Dioxide 26 (21-32) mmol/L Anion Gap 7.0 (3-11) BUN 13 (7-18) mg/dl Creatinine 0.74 (0.6-1.2) mg/dl Est Cr Clr Drug Dosing Not Reportable Est GFR ( Amer) 89.9 ml/min Est GFR (Non-Af Amer) 77.6 ml/min BUN/Creatinine Ratio 17.6 (10-20) Glucose 106 H (70-99) mg/dl Lactate (0.4-2.0) mmol/L Calcium 8.9 (8.5-10.1) mg/dl Total Bilirubin 0.7 (0.2-1) mg/dl AST 21 (15-37) U/L ALT 25 (12-78) U/L Alkaline Phosphatase 83 (45-117) U/L Total Protein 7.2 (6.4-8.2) gm/dl Albumin 3.8 (3.4-5.0) gm/dl Globulin 3.4 (2.5-4.0) gm/dl Albumin/Globulin Ratio 1.1 (0.9-2) Lipase 127 (73-393) U/L COVID-19 Eval Order Covid19 at [facility] SARS-CoV-2 (PCR) (Negative) 01/26/21 01/26/21 Range/Units 18:30 19:00 WBC (4.8-10.8) K/uL RBC (4.2-5.4) M/uL Hgb (12.0-16.0) g/dL Hct (37-47) % MCV (80-100) fL MCH (25-34) pg MCHC (32-36) g/dL RDW Std Deviation (36.4-46.3) fL RDW Coeff of Melany (11.5-14.5) % Plt Count (130-400) K/uL MPV (7.4-10.4) fL Immature Gran % (Auto) % Neut % (Auto) % Lymph % (Auto) % [place] % (Auto) % Eos % (Auto) % Baso % (Auto) % Neut # (Auto) (1.4-6.5) K/uL Lymph # (Auto) (1.2-3.4) K/uL [place] # (Auto) (0.11-0.59) K/uL Eos # (Auto) (0-0.5) K/uL Baso # (Auto) (0-0.2) K/uL Immature Gran # (Auto) (0.00-0.02) K/uL Sodium (136-145) mmol/L Potassium (3.5-5.1) mmol/L Chloride (98-107) mmol/L Carbon Dioxide (21-32) mmol/L Anion Gap (3-11) BUN (7-18) mg/dl Creatinine (0.6-1.2) mg/dl Est Cr Clr Drug Dosing Est GFR ( Amer) ml/min Est GFR (Non-Af Amer) ml/min BUN/Creatinine Ratio (10-20) Glucose (70-99) mg/dl Lactate 1.0 (0.4-2.0) mmol/L Calcium (8.5-10.1) mg/dl Total Bilirubin (0.2-1) mg/dl AST (15-37) U/L ALT (12-78) U/L Alkaline Phosphatase (45-117) U/L Total Protein (6.4-8.2) gm/dl Albumin (3.4-5.0) gm/dl Globulin (2.5-4.0) gm/dl Albumin/Globulin Ratio (0.9-2) Lipase (73-393) U/L COVID-19 Eval Order SARS-CoV-2 (PCR) NEGATIVE (Negative) Administered Medications Sodium Chloride (Nss 1000ml) 1,000 mls @ 125 mls/hr IV .Q8H [id number] Stop: 02/25/21 21:53 Last Admin: 01/27/21 06:24 Dose: 125 mls/hr Documented by: [id number] Infusion: 01/27/21 06:17 Dose: 125 mls/hr Documented by: [id number] Admin: 01/26/21 22:17 Dose: 125 mls/hr Documented by: [id number] Discontinued Medications Hydromorphone HCl (Hydromorphone Inj 0.5 Mg/0.5 Ml Syr) 0.25 mg IV Q15M PRN PRN Reason: Pain Stop: 02/09/21 18:02 Last Admin: 01/26/21 18:27 Dose: 0.25 mg Documented by: [id number] Sodium Chloride (Nss 1000ml) 500 mls @ 999 mls/hr IV .Q31M ONE Stop: 01/26/21 18:27 Last Infusion: 01/26/21 18:51 Dose: 0 mls/hr Documented by: [id number] Admin: 01/26/21 18:27 Dose: 999 mls/hr Documented by: [id number] Sodium Chloride (Nss 1000ml) 1,000 mls @ 125 mls/hr IV .Q8H STA Stop: 01/27/21 01:56 Last Infusion: 01/26/21 22:41 Dose: 0 mls/hr Documented by: [id number] Admin: 01/26/21 18:51 Dose: 125 mls/hr Documented by: [id number] Ondansetron HCl (Ondansetron Inj 2 Mg/Ml 2 Ml Vial) 4 mg IV NOW STA Stop: 01/26/21 17:58 Last Admin: 01/26/21 18:27 Dose: 4 mg Documented by: [id number] Imaging Data Radiologist's Impression: Chest X-Ray 01/26/21 18:31 XR chest 1V portable CLINICAL HISTORY: Preoperative evaluation. COMPARISON STUDY: Chest radiograph February 18, 2019. FINDINGS: Lung volumes are normal. Lungs are clear. There is no pneumothorax or pleural effusion. Cardiac size is normal. Mediastinal contours are normal. There is no evidence for pulmonary edema. A large hiatal hernia is noted with partially intrathoracic stomach. IMPRESSION: 1. No acute cardiopulmonary findings. 2. Large hiatal hernia with partially intrathoracic stomach. ACT 112: Negative or not required by law. Electronically signed by: Mark Self M.D. 01/26/2021 7:55 PM Discharge Plan Visit Data Chief Complaint: Abnormal Labs/Diagnostic Testing Stated Complaint: ABNORMAL CT SCAN AND BLOODWORK ED Provider: Keegan Conner Discharge Problem: Incisional hernia with bowel obstruction, Generalized abdominal pain, Nausea, Acute hyponatremia Patient Disposition: Admitted As Inpatient Discharge Instructions Interventions: ED Discharge Assessment Last Done: 01/26/21 21:10
[2021-01-27] MEDS: SODIUM CHLORIDE 0.9% 1000ML 1,000 ML IV SCH ×3 (06:24→23:17)
[2021-01-27 06:30] LABS: Basophils # (auto) 0.02 K/uL (0-0.2); Basophils % (auto) 0.4 %; Eosinophils # (auto) 0.07 K/uL (0-0.5); Eosinophils % (auto) 1.5 %; Hematocrit (blood only) 35.4 % (37-47); Hemoglobin 11.5 g/dL (12.0-16.0); Immature Granulocytes # (auto) 0.03 K/uL (0.00-0.02); Immature Granulocytes % (auto) 0.6 %; Lymphocytes # (auto) 1.76 K/uL (1.2-3.4); Lymphocytes % (auto) 37.8 %; Mean Corpuscular Hemoglobin 30.4 pg (25-34); Mean Corpuscular Hgb Conc 32.5 g/dL (32-36); Mean Corpuscular Volume 93.7 fL (80-100); Mean Platelet Volume 10.2 fL (7.4-10.4); Monocytes % (auto) 10.8 %; Neutrophils # (auto) 2.27 K/uL (1.4-6.5); Neutrophils % (auto) 48.9 %; Platelet Count 187 K/uL (130-400); RDW Coefficient of Variation 14.3 % (11.5-14.5); RDW Standard Deviation 48.7 fL (36.4-46.3); Red Blood Count 3.78 M/uL (4.2-5.4); White Blood Count 4.65 K/uL (4.8-10.8)
[2021-01-27 07:20] LABS: Albumin Globulin Ratio 0.9 (0.9-2); Albumin Level 2.8 gm/dl (3.4-5.0); BUN Creatinine Ratio 14.2 (10-20); Bilirubin,Total 0.7 mg/dl (0.2-1); Calcium 8.2 mg/dl (8.5-10.1); Creatinine Clr Calc Pharmacy 75.5 ml/min; Est GFR (African American) 100.6 ml/min; Est GFR (Non-African American) 86.8 ml/min; Potassium 4.1 mmol/L (3.5-5.1); Total Protein 5.8 gm/dl (6.4-8.2)
--- NOTE | 2021-01-27 08:36 | Surgery Progress Note ---
Date of Service January 27, 2021 Assessment & Plan (1) Incisional hernia with bowel obstruction: Plan: sbo secondary to stoma site hernia, reducible. Follow up KUB await return of bowel function no emergency surgery indicated. If no improvement consider OR early next week. NPO, ivf's Admission and Anticipated Discharge Date Admission Date: January 26, 2021 Subjective 80 y/o female with partial sbo secondary to stoma site hernia. Feeling better today, no flatus or bm yet. KUB pending. Physical Exam Constitutional: WD/WN, vitals as above Gastrointestinal (Abdomen): normal bowel sounds, soft, nontender, no hepatosplenomegaly Inspection/Auscultation: + abdominal surgical scar Percussion/Palpation: + hernia (reducible midline and stoma site hernia) Results & Data ([facility]) Vital Signs (Past 12 Hours) Vital Signs Temp Pulse Pulse Resp BP Pulse Ox 01/26/21 22:43 36.7 C 60 16 113/71 93 01/26/21 21:20 36.3 C L 63 65 16 161/66 H 96 PG Care Time/CCT Total # of Minutes Spent Total Time Spent with Patient: Total time spent is greater than 50% in coordination of care (as documented) at patient's floor/unit and/or counseling patient: Coding Level of Care Code 13390 Inpt Consult Level 2 Diagnoses Incisional hernia with bowel obstruction K43.0
--- NOTE | 2021-01-27 08:43 | XRay Report ---
KUB CLINICAL HISTORY: sbo COMPARISON STUDY: CT of the abdomen and pelvis January 26, 2021. FINDINGS: No dilated loops of small bowel are noted. Oral contrast within the cecum, ascending colon and transverse colon is noted. Colonic dilatation has improved since prior exam. There is no evidence for free air on this supine exam. IMPRESSION: Interval decrease in colonic dilatation and passage of oral contrast into the transverse colon. The findings suggest resolving bowel obstruction. ACT 112: Negative or not required by law. Electronically signed by: Mark Self M.D. 01/27/2021 8:41 AM
--- NOTE | 2021-01-27 13:43 | Electrocardiogram Report ---
Test Reason : Blood Pressure : / mmHG Vent. Rate : 058 BPM Atrial Rate : 058 BPM P-R Int : 152 ms QRS Dur : 130 ms QT Int : 488 ms P-R-T Axes : 000 -10 -05 degrees QTc Int : 479 ms Poor data quality, interpretation may be adversely affected Sinus bradycardia Right bundle branch block Nonspecific T wave abnormality Abnormal ECG When compared with ECG of 20-JUN-2010 16:23, Nonspecific T wave abnormality is present Confirmed by Chet Murguia ([id number]) on 01/27/2021 1:42:59 PM Referred By: Vannessa Richardson Confirmed By:Chet Murguia
[2021-01-27] MEDS ORDERED: ACETAMINOPHEN 1,000 MG/100 ML VIAL IV PRN (15:38)
--- NOTE | 2021-01-27 15:44 | Hospitalist Progress Note ---
Date of Service January 27, 2021 Assessment & Plan (1) Incisional hernia with bowel obstruction: Plan: Reduced by surgery in the ED. Pain resolved. KUB performed this am showing resolving bowel obstruction. Surgery consulted. Patient to remain NPO today. NG not warranted at this time. If bowel obstruction fails to resolve, may need OR early next week. Otherwise, will likely need outpatient surgical repair. Continue IVF NSS 125mls/hr. Zofran PRN for nausea. IV Tylenol PRN for pain. Switch to PO when taking PO again. (2) Acute hyponatremia: Plan: 128 on admission. Improved to 139 this AM after IVF. Continue to monitor. (3) History of reversal of ileostomy: Plan: Hx of rectal cancer with resection. (4) Hyperlipidemia: Plan: Hold simvastatin for NPO status. Resume when taking PO. (5) Constipation: Plan: On Trulance as an outpatient. Hold for NPO status. Plan: VTE Prophylaxis - SCDs Diet - NPO Disposition - admit to med/surg Admission and Anticipated Discharge Date Admission Date: January 26, 2021 Subjective 80 year old female admitted with incisional hernia with bowel obstruction. Patient reports she is feeling well this morning. Pain has resolved. She denies n/v or BM. She remains NPO. Review of Systems Review of Systems: All systems reviewed & are unremarkable except as noted in Subjective Physical Exam Physical Exam: Temp Pulse Resp BP Pulse Ox 36.7 C 66 20 124/63 93 01/27/21 07:30 01/27/21 07:30 01/27/21 07:30 01/27/21 07:30 01/27/21 07:30 Patient is afebrile. Vital signs stable. Constitutional: average body habitus; no acute distress Eyes: + anicteric sclerae ENMT: Ears: no hearing impairment Neck: normal visual inspection Respiratory: normal respiratory effort, lungs clear to auscultation Cardiovascular: RRR, no murmur, no edema Gastrointestinal (Abdomen): Inspection/Auscultation: normal bowel sounds Percussion/Palpation: abdomen soft; abdomen nontender and no hepatosplenomegaly Musculoskeletal: Head/Neck/Chest: normocephalic Skin: no rashes, warm and dry Psychiatric: A+Ox3, euthymic affect Results & Data Results & Data ([facility]) Vital Signs (Past 12 Hours) Vital Signs Temp Pulse Resp BP Pulse Ox 01/27/21 07:30 36.7 C 66 20 124/63 93 PG Care Time/CCT Total # of Minutes Spent Total Time Spent with Patient: Total time spent is greater than 50% in coordination of care (as documented) at patient's floor/unit and/or counseling patient: Coding Level of Care Code 27756 Subseq Hosp Care Lvl 2 Diagnoses Incisional hernia with bowel obstruction K43.0 Acute hyponatremia E87.1 History of reversal of ileostomy Z98.890 Hyperlipidemia E78.5 Constipation K59.01 Constipation type: slow transit constipation (1) Constipation Constipation type: slow transit constipation Qualified Code(s): K59.01 - Slow transit constipation
--- NOTE | 2021-01-28 05:56 | Surgery Progress Note ---
Date of Service January 28, 2021 Assessment & Plan (1) Incisional hernia with bowel obstruction: Plan: KUB yesterday showed oral contrast from previous CT scan has reached the transverse colon consistent with a resolving obstruction. Patient has had a bowel movement may consider advancing to clear liquids later today Admission and Anticipated Discharge Date Admission Date: January 26, 2021 Supervising Physician Co-Signing Physician Notes Patient seen and examined, agree with above. 80-year-old female with history of LAR and chronic constipation admitted with possible bowel obstruction secondary to ileostomy site hernia. KUB yesterday showed contrast in the transverse colon. She had a bowel movement this morning is passing flatus. She has no pain. On exam she is afebrile. The right lower quadrant stoma site hernia is easily reducible and nontender as is the midline hernia, though they do recur after reduction. Advance diet to low fiber as tolerated, aggressive bowel regimen, follow-up as an outpatient for consideration of hernia repairs. Subjective Patient is resting comfortably in bed and she reports an uneventful night. She notes that she is passing flatus and had a bowel movement. She denies any nausea or vomiting. She denies any abdominal pain. Physical Exam Gastrointestinal (Abdomen): Abdomen is soft, nondistended, and nontender to palpation. Results & Data ([facility]) Vital Signs (Past 12 Hours) Vital Signs Temp Pulse Resp BP Pulse Ox 01/27/21 22:28 36.5 C 54 L 16 133/87 92 PG Care Time/CCT Total # of Minutes Spent Total Time Spent with Patient: Total time spent is greater than 50% in coordination of care (as documented) at patient's floor/unit and/or counseling patient: Coding Level of Care Code 47138 Subseq Hosp Care Lvl 1 Diagnoses Incisional hernia with bowel obstruction K43.0
[2021-01-28] MEDS: SODIUM CHLORIDE 0.9% 1000ML 1,000 ML IV SCH ×3 (08:23→17:39)
[2021-01-29] MEDS: SODIUM CHLORIDE 0.9% 1000ML 1,000 ML IV SCH (02:24)
--- NOTE | 2021-01-29 08:23 | Surgery Progress Note ---
Date of Service January 29, 2021 Assessment & Plan (1) Incisional hernia with bowel obstruction: Plan: advance diet f/u as outpatient for hernia repair Admission and Anticipated Discharge Date Admission Date: January 26, 2021 Subjective no complaints other than wants more to eat, large BM yesterday Physical Exam Gastrointestinal (Abdomen): Percussion/Palpation: abdomen soft and + hernia; abdomen nontender Results & Data ([facility]) Vital Signs (Past 12 Hours) Vital Signs Temp Pulse Resp BP Pulse Ox 01/29/21 05:20 36.6 C 61 15 147/72 H 94 01/28/21 23:21 36.5 C 55 L 15 144/77 H 94 PG Care Time/CCT Total # of Minutes Spent Total Time Spent with Patient: Total time spent is greater than 50% in coordination of care (as documented) at patient's floor/unit and/or counseling patient: Coding Level of Care Code 66497 Subseq Hosp Care Lvl 1 Diagnoses Incisional hernia with bowel obstruction K43.0
--- NOTE | 2021-01-29 14:40 | Discharge Summary ---
Date of Service January 29, 2021 Admission HPI Per Admitting Provider Laverne Dunn is a 80 year old female who presents to the ER after an abnormal outpatient CT. She has been having increasing problems with her chronic constipation over the last 2 days with increasing right lower quadrant abdominal pain. She is taking Trulance, fiber and milk of magnesia but last normal bowel movement was 2 days ago. She reports usually coffee causes a bowel movement but not on this occasion. Due to her known abdominal hernia her PCP organized and outpatient CT when she called earlier today. This was concerning for a colonic bowel obstruction therefore she was sent to the ER for further workup. Her abdominal pain started this morning around 10am, right lower quadrant over incisional hernia site, no radiation, severity 10/10 at worst, currently 0/10 after Dilaudid given in the ER. She denies any nausea or vomiting. She was referred to medicine for admission and ongoing management of colonic obstruction. The patient was seen and examined in the ER in collaboration with Dr Leon. Discharge Data Allergies Allergy/AdvReac Type Severity Reaction Status Date / Time Penicillins Allergy Unknown unsure of Verified 01/26/21 18:24 reaction Consultations 01/26/21 19:01 ED Decision to Admit Stat Hospital Course (1) Incisional hernia with bowel obstruction: Reduced by surgery in the ER. Currently non-painful over area although difficult to say how much her pain medication are affecting her. Consult surgery NPO. IV fluids. No NG tube needed at present time Acetaminophen for pain, Ondansetron for nausea (2) Acute hyponatremia: Suspect poor nutritional intake. Appears hypovolemic on exam. Continue NSS @ 125 ml/hr Repeat BMP in AM (3) History of reversal of ileostomy: Noted (4) Hyperlipidemia: Holding simvastatin as NPO at the present time (5) Constipation: Holding Trulance due to bowel obstruction as above VTE Prophylaxis - SCDs Diet - NPO Disposition - admit to med/surg Discharge Plan Discharge Items Patient Disposition: Home - Self-Care Reason For Visit: COLONIC BOWEL OBSTRUCTION Discharge Diagnosis: Obstruction (blockage) of colon due to right lower abdomen hernia - surgical follow-up needed Activity: Resume your previous activity Non-emergency contact: Primary Care Provider and Surgeon Call non-emergency contact if: you have any medication questions, your symptoms worsen, your pain is not controlled, your pain is worsening, your pain is unusual for you, your pain is concerning for you and you have a fever Follow-up/Referrals: Vannessa Richardson CRNP [Primary Care Provider] - (see Ms Richardson in 1 week ) Mickey Leon DO, FACS [Physician] - (You have an appt on Friday02/12/21 at 10:30 AM at [address] [place]--the building in front of the hospital) Diet: Low Fiber Addtl Attending Provider Instructions: Amarjit Trinidad were admitted to the hospital because of a bowel obstruction (blockage). A hernia in the right lower abdomen was the cause of the bowel obstruction. With supportive measures and time the obstruction fully resolved. You are moving your bowels again and tolerating a diet. The [facility] surgeons saw you in consult and have recommended hernia repair in the very-near future to prevent another obstruction. An appointment with the surgeons has been made to discuss surgery. Recommendations - 1. gradually increase your activities over the next 7 days 2. low-fiber diet for 7 days; see handout "Low Fiber" 3. please do not take any [id number] fiber supplement OR any laxatives/constipation medications 4. please do not take any prescribed medication for constipation unless this is permitted by the [facility] surgeons 5. focus on good hydration over the next few days Follow-up - see separate section Return to [facility] if - * you have worsening bloating of the stomach, distension, or abdominal pain * you have ongoing nausea and/or vomiting * you are not passing any gas or stool from your rectum * any other concerns Continue to feel better! -Dr Stock Pending Studies at Discharge: No Stand-Alone Forms: My [facility], Smoking Cessation Medications and DC Order Prescriptions: Continued simvastatin 20 mg tablet 20 mg PO DAILY Qty: 90 RF: 3 Discontinued Trulance 3 mg tablet 3 mg PO DAILY PRN (Reason: Constipation) RF: 0 Discharge Orders: Discharge Order (Routine); Ordered 01/29/21 Ordered By: Justin Carmen/Other Patient Handouts: Low-Fiber Diet, Understanding Intestinal Obstruction Admission Data Admit Date/Time: 01/26/21 19:40 Attending Provider: Justin Stock Admit Provider: Justin Rodriguez Primary Care Provider: Vannessa Richardson Other Providers: Justin Rodriguez Coding Diagnoses Incisional hernia with bowel obstruction K43.0 Acute hyponatremia E87.1 History of reversal of ileostomy Z98.890 Hyperlipidemia E78.5 Constipation K59.01 Constipation type: slow transit constipation
== END 2021-01-29 15:19 | disposition home or self-care (01) | DRG 394 ==
LOC: ED 17:00 → SUATTDRO 19:40 → 3N 19:40

== ENCOUNTER 2021-05-16 06:28 | Observation (INO) ==
--- NOTE | 2021-05-15 09:53 | Anesthesiology Consultation ---
Date of Service May 15, 2021 Assessment & Plan (1) Encounter for pre-operative examination: - check CBC with diff, BMP, LFT am DOS as ordered by surgeon. - PCP office visit 02/23/2021 [place]: "...acute shingles...start Valtrex...Patient is scheduled for hernia surgery next week. Recommend that she contact her surgeon's office and let them know that she has singles over the right side of her Abd..." - cardiology pre-op visit 02/19/2021 [place]: "...hyperlipidemia, rectal cancer s/p resection, and incisional hernia with bowel obstruction who presents to the clinic for preoperative cardiovascular evaluation prior to hernia repair with Dr. Leon on 02/28/21...is currently stable and asymptomatic from a cardiovascular standpoint with no anginal symptoms occurring at >4 METS of activity...no evidence of CHF or significant valvular abnormality...blood pressure is well controlled...patient is at an acceptable risk to proceed with upcoming surgery without any additional cardiovascular testing or intervention. Follow-up in cardiology as needed..." - COVID screening: Per hand sample maker on 05/01/2021: Travel screen negative, no known COVID-19 positive contacts or current COVID-19 related symptoms in past 2 weeks. Patient vaccinated. Surgeon arranging preop COVID testing, completed 05/14/2021. Awaiting results. Chart Review Chart Review: Acceptable Risk for Surgery and Patient NOT seen in Pre Admission Testing History Surgery Operation Date: 05/16/21 08:20 Proposed Procedures p Laparoscopic Assisted Incisional Hernia Repair - Mickey Leon, , FACS Height/Weight Height: 5 ft 3.5 in Weight: 72.575 kg Allergies Allergy/AdvReac Type Severity Reaction Status Date / Time Penicillins Allergy Unknown unsure of Verified 05/01/21 09:01 reaction Medications Home Medications Medication Instructions Recorded Confirmed Last Taken bisacodyl 5 mg tablet,delayed 5 mg PO HS PRN 02/14/21 05/01/21 Unknown release (Dulcolax (bisacodyl)) simvastatin 20 mg tablet (Zocor) 20 mg PO QAM 02/14/21 05/01/21 02/17/21 Past Medical History Medical History (Updated 05/15/21 @ 09:46 by Mar Cui PA-C) Constipation Diverticular disease History of colon cancer dx 3 years ago; treated surgically History of skin cancer removed Hyperlipidemia Hypertension pt denies Poor historian RBBB Past Family History Family History Brother Myocardial infarction Sister Myocardial infarction Family history of diabetes mellitus Father Myocardial infarction Other No family history of adverse response to anesthesia Denies family history of Ovarian cancer Prostate cancer Crohn's disease Breast cancer Colorectal cancer Ulcerative colitis Past Surgical History Surgical History History of bilateral breast reduction surgery History of bowel resection History of cataract surgery History of cholecystectomy History of colonoscopy History of colostomy reversal History of foot surgery RT FOOT TOE SURGERY x 2 History of hysterectomy History of surgery Anterior Colporrhaphy, repair of cystocele History of tooth extraction Social History Smoking Status: Never smoker Do You Dip or Chew Tobacco: No Hx Alcohol Use: No Hx Substance Use: No substance use type: does not use Testing Electrocardiogram Date: 01/26/21 Poor data quality Sinus bradycardia, rate 58 bpm RBBB Nonspecific T wave abnormality Chest X-Ray Date: 01/26/21 *1 view* IMPRESSION: 1. No acute cardiopulmonary findings. 2. Large hiatal hernia with partially intrathoracic stomach. Other Testing Abdomen/pelvis CT 02/18/2021 IMPRESSION: 1. No acute process within the abdomen or pelvis. 2. Right lower quadrant abdominal wall hernia which contains small and large bowel. No resultant bowel obstruction. 2. Additional lower abdominal ventral hernia which contains a portion of the transverse colon. This does not result in the bowel obstruction. 3. Large hiatal hernia with partially intrathoracic stomach.
--- NOTE | 2021-05-15 15:17 | History & Physical Report ---
Date of Service May 15, 2021 Assessment & Plan (1) Incisional hernia: Plan: 80 y/o female with symptomatic incisional and ostomy site hernias with history of sbo treated with reduction and non op management, desires repair plan for laparoscopic assisted incisional hernia repair, possible open risks discussed to include but not limited to bleeding, infection, recurrence, chronic pain, damage to surrounding structures, need for future or more extensive surgery, and risks of anesthesia educated on signs and symptoms of incarceration, obstruction, and strangulation pre op risk assessment from pcp return precautions given, call with questions or concerns (2) Hiatal hernia: (3) History of colon cancer: History of Present Illness Primary Care Provider: EMI Wilde 80 y/o female known to me from prior hospitalization here for follow up. Admitted a few months ago with SBO related to known ostomy site hernia, resolved with reduction and non operative treatment. No issues since except for her chronic constipation. Would like to have hernias fixed. Surgery delayed due to COVID pandemic. No changes since last visit. Allergies Allergy/AdvReac Type Severity Reaction Status Date / Time Penicillins Allergy Unknown unsure of Verified 05/01/21 09:01 reaction Home Medications Medication Instructions Recorded Confirmed Type bisacodyl 5 mg tablet,delayed 5 mg PO HS PRN 02/14/21 05/16/21 History release (Dulcolax (bisacodyl)) simvastatin 20 mg tablet (Zocor) 20 mg PO QAM 02/14/21 05/16/21 History Past Med/Surg History Medical History Constipation Diverticular disease History of colon cancer dx 3 years ago; treated surgically History of skin cancer removed Hyperlipidemia Hypertension pt denies Incisional hernia Poor historian RBBB Surgical History History of bilateral breast reduction surgery History of bowel resection History of cataract surgery History of cholecystectomy History of colonoscopy History of colostomy reversal History of foot surgery RT FOOT TOE SURGERY x 2 History of hysterectomy History of surgery Anterior Colporrhaphy, repair of cystocele History of tooth extraction Family History Brother Myocardial infarction Sister Myocardial infarction Family history of diabetes mellitus Father Myocardial infarction Other No family history of adverse response to anesthesia Denies family history of Ovarian cancer Prostate cancer Crohn's disease Breast cancer Colorectal cancer Ulcerative colitis Social History Smoking Status: Never smoker Second Hand Exposure: No; Do You Dip or Chew Tobacco: No; Hx Alcohol Use: No Hx Substance Use: No Preferred Language: Eritrean Communication Ability: Effective Sanitary Chemist Required: No Beliefs That Will Affect Care: None marital status: Current Living Situation: Family Current Living Situation Comment: lives with , son and grandson current occupational status: retired Feels Safe at Home: Yes Safety Concerns: Feels Safe At This Time Childhood Exposure to Second-Hand Smoke: No caffeine: Yes Dental Care, Regularly: No Physical Activity Frequency: Does not Exercise Seatbelt Use: always Sunscreen Use: No Assistive Devices: Denture - Upper, Denture - Lower and Glasses Review of Systems Review of Systems: All systems reviewed & are unremarkable except as noted in HPI & below Physical Exam Constitutional: WD/WN, vitals as above Respiratory: normal respiratory effort, lungs clear to auscultation Cardiovascular: RRR, no murmur, no edema Gastrointestinal (Abdomen): normal bowel sounds, soft, nontender, no hepatosplenomegaly Inspection/Auscultation: + abdominal surgical scar Percussion/Palpation: + hernia (reducible low midline incisional and RLQ ostomy site hernia, though recur) Results & Data Results & Data ([facility]) Diagnostic Findings CT OF THE ABDOMEN AND PELVIS WITH CONTRAST CLINICAL HISTORY: RLQ hernia/abd pain COMPARISON STUDY: CT of the abdomen and pelvis January 26, 2021. KUB January 27, 2021. TECHNIQUE: Following IV administration of 95 mL of Optiray, axial images of the abdomen and pelvis were obtained from the lung bases to the proximal femurs. Images were reviewed in the axial, sagittal, and coronal planes. IV contrast was administered without complication. Automated exposure control was utilized for the study. A dose lowering technique was utilized adhering to the principles of ALARA. CT DOSE: 521.85 mGy.cm FINDINGS: Lung bases are unremarkable. A large hiatal hernia with partially intrathoracic stomach is noted. The stomach is not distended. No pneumatosis, free air or portal venous gas is present. There are calcified granulomas within the spleen. Mild biliary ductal dilatation is unchanged. This is likely related to cholecystectomy. There is no pancreatic ductal dilatation. No peripancreatic infiltration. Mild left renal atrophy is noted. No hydronephrosis. Right lower quadrant abdominal wall hernia contains multiple bowel loops. There is no resultant bowel obstruction. Small large bowel loops are noted within the hernia sac. A bowel anastomosis is noted. There is an additional lower abdominal ventral hernia which contains a portion of the transverse colon. This does not result in a bowel obstruction. There is colonic diverticulosis without evidence for acute diverticulitis. Trace gas within the bladder is noted. Postoperative findings at the rectosigmoid junction are noted. There is no lymphadenopathy. Major vasculature is patent. IMPRESSION: 1. No acute process within the abdomen or pelvis. 2. Right lower quadrant abdominal wall hernia which contains small and large bowel. No resultant bowel obstruction. 2. Additional lower abdominal ventral hernia which contains a portion of the transverse colon. This does not result in the bowel obstruction. 3. Large hiatal hernia with partially intrathoracic stomach. PG Care Time/CCT Total # of Minutes Spent Total Time Spent with Patient: Total time spent is greater than 50% in coordination of care (as documented) at patient's floor/unit and/or counseling patient: Coding Level of Care Code 59013 Initial Inpt Care Lvl 1 Diagnoses Incisional hernia K43.2 Hiatal hernia K44.9 History of colon cancer Z85.038
[~2021-05-16 06:28] MED LIST changes: -HYDR-4380 PO; -LACT10SO17 PO; -LINA1CAP PO; -OPTIRAY 320 IV PRN; -SIMV20TA2 PO; -ZOLP5TAB6 PO; +ceFAZolin 2000MG 2,000 MG/15 ML SYR IV SCH
[2021-05-16 07:03] LABS: Basophils # (auto) 0.03 K/uL (0-0.2); Basophils % (auto) 0.6 %; Eosinophils # (auto) 0.16 K/uL (0-0.5); Eosinophils % (auto) 3.2 %; Hematocrit (blood only) 41.7 % (37-47); Hemoglobin 13.7 g/dL (12.0-16.0); Immature Granulocytes # (auto) 0.01 K/uL (0.00-0.02); Immature Granulocytes % (auto) 0.2 %; Lymphocytes # (auto) 2.19 K/uL (1.2-3.4); Lymphocytes % (auto) 43.6 %; Mean Corpuscular Hemoglobin 31.9 pg (25-34); Mean Corpuscular Volume 97.2 fL (80-100); Mean Platelet Volume 9.3 fL (7.4-10.4); Neutrophils # (auto) 2.13 K/uL (1.4-6.5); Neutrophils % (auto) 42.4 %; Platelet Count 231 K/uL (130-400); RDW Standard Deviation 50.1 fL (36.4-46.3); Red Blood Count 4.29 M/uL (4.2-5.4); White Blood Count 5.02 K/uL (4.8-10.8)
[2021-05-16 07:09] LABS: Mean Corpuscular Hgb Conc 32.9 g/dL (32-36)
[2021-05-16 07:28] LABS: Albumin Level 4.3 gm/dl (3.4-5.0); BUN Creatinine Ratio 14.3 (10-20); Bilirubin Direct 0.1 mg/dl (0-0.2); Bilirubin,Total 0.5 mg/dl (0.2-1.0); Calcium 9.2 mg/dl (8.5-10.1); Est GFR (African American) 85.7 ml/min; Total Protein 6.9 gm/dl (6.0-8.3)
[2021-05-16] MEDS ORDERED: DEXAMETHASONE SOD INJ 4 MG/ML VIAL ONE (08:11)
[2021-05-16] MEDS ORDERED: ONDANSETRON INJ 2 MG/ML 2 ML VIAL ONE (08:11)
[2021-05-16] MEDS ORDERED: LIDOCAINE 2% 2 ML VIAL/AMP(20MG/ML) INFIL ONE (08:11)
[2021-05-16] MEDS ORDERED: ROCURONIUM BROMIDE 10 MG/ML 5 ML VIAL IV ONE ×2 (08:11→10:24)
[2021-05-16] MEDS ORDERED: PROPOFOL IV EMULSION 10 MG/ML 20 ML VIAL IV ONE (08:11)
[2021-05-16] MEDS ORDERED: fentaNYL citrate 100 MCG/2 ML VIAL ONE ×3 (08:12→10:57)
[2021-05-16] MEDS ORDERED: HYDROmorphone INJ 2 MG/ML SYR/VIAL IV PRN (08:16)
[2021-05-16] MEDS ORDERED: PROMETHAZINE HCL 12.5 MG in SODIUM CHLORIDE 0.9% 50 ML IV PRN (08:16)
[2021-05-16] MEDS ORDERED: ePHEDrine sulfate 50 MG/ML AMP IV PRN (08:16)
[2021-05-16] MEDS ORDERED: ONDANSETRON INJ 2 MG/ML 2 ML VIAL IV PRN ×2 (08:16→13:32)
[2021-05-16] MEDS ORDERED: ATROPINE SULFATE 0.1 MG/ML 10ML SYR IV PRN (08:16)
[2021-05-16] MEDS ORDERED: BUPIVACAINE 0.5 % 5 MG/1 ML MPF 30ML VIAL ONE (08:23)
--- NOTE | 2021-05-16 08:25 | History & Physical Bridge Note ---
Date of Service May 16, 2021 History & Physical Bridge Note I have examined the patient, reviewed the History & Physical and in the interval since the performance of the History & Physical I have noted the following changes of clinical significance: no changes noted
[2021-05-16] MEDS ORDERED: BUPIVACAINE LIPOSOME 1.3% 266 MG/20 ML VIAL ONE (10:18)
[2021-05-16] MEDS ORDERED: ePHEDrine sulfate 50 MG/ML SYR ONE (10:24)
[2021-05-16] MEDS ORDERED: NEOSTIGMINE METHYLSULFATE 1 MG/ML 10ML VIAL ONE (10:24)
[2021-05-16] MEDS ORDERED: LABETALOL HCL IV 5 MG/ML 20ML IV ONE (11:09)
--- NOTE | 2021-05-16 11:19 | Post Operative Brief Note ---
PG Immediate Post Op with CF Date of Surgery May 16, 2021 Pre & Post Diagnosis Operation Date: 05/16/21 08:20 Pre-Op Diagnosis: Incisional and Ostomy Site Hernias Post-Op Diagnosis: Incisional and Ostomy Site Hernias I identified the patient and participated in the time-out.: Yes Procedure Operation Date: 05/16/21 08:20 Actual Procedures p Laparoscopic Lysis of Adhesion, Repair of Incarcerated Incisional Hernia Repairs with Component Separation - Mickey Leon DO, FACS Surgeon Mickey Leon DO, MARCI Pst Manager Harpreet Santos Estimated Blood Loss 20 Findings Consistent with Post-Op Diagnosis Diagnostic laparoscopy and laparoscopic lysis of adhesions performed. Hernias completely reduced. Elected to perform open repair. Midline defect was 8 cm x 7 cm, ostomy defect was 4 cm x 3.5 cm, additional 2 cm umbilical defect. Hernia sacs excised. Partial component separation performed with relaxing incision along the lateral rectus sheath. Fascial defects closed with interrupted #1 Prolene [id number] sutures. OviTex 1S [id number] onlay cut to fit and covered all defects. Exparel injected, 15mm NORMA placed. Specimens Specimen Description: A: Hernia Sac Drains Dan Catheter (Inserted by Jerrica Chacko CST without difficulty. Urine ret urn was clear, yellow) and Peterson-Kumar Drain (15 Croatian) Anesthesia Type General Complications none Disposition Accompanied Patient To Recovery: No Disposition: Recovery Room
[2021-05-16] MEDS: fentaNYL citrate 100 MCG/2 ML VIAL IV PRN ×4 (11:27→12:45)
--- NOTE | 2021-05-16 11:37 | Operative Report ---
PG Post Operative Report Pre & Post Diagnosis Operation Date: 05/16/21 08:20 Pre-Op Diagnosis: Incisional and Ostomy Site Hernias Post-Op Diagnosis: Incisional and Ostomy Site Hernias I identified the patient and participated in the time-out.: Yes Procedure Operation Date: 05/16/21 08:20 Actual Procedures p Laparoscopic Lysis of Adhesion, Repair of Incarcerated Incisional Hernia Repairs with Component Separation - Mickey Leon DO, MARCI Surgeon Mickey Leon DO, MARCI Collection Advisor Harpreet Santos Estimated Blood Loss 20 Findings Consistent with Post-Op Diagnosis Diagnostic laparoscopy and laparoscopic lysis of adhesions performed. Hernias completely reduced. Elected to perform open repair. Midline defect was 8 cm x 7 cm, ostomy defect was 4 cm x 3.5 cm, additional 2 cm umbilical defect. Hernia sacs excised. Partial component separation performed with relaxing incision along the lateral rectus sheath. Fascial defects closed with interrupted #1 Prolene [id number] sutures. OviTex 1S [id number] onlay cut to fit and covered all defects. Exparel injected, 15mm NORMA placed. Specimens hernia sac Drains 15 round NORMA Anesthesia Type General Complications none Disposition Accompanied Patient To Recovery: No Disposition: Recovery Room Indications 80-year-old female with history of colon resection and diverting ostomy status post takedown, and history of incisional and stomal site hernias with admission for bowel obstruction which resolved with manual reduction and nonoperative management, desires repair of the hernias. Plan for laparoscopic assisted ventral hernia repairs. The risks of the procedure were discussed, all questions were answered, and the patient agreed to proceed with surgery as planned. Description of Procedure The patient was properly identified, consented, and taken to the operating room where she was placed in the supine position. General endotracheal anesthesia was induced. A Dan catheter, SCDs and a safety belt were placed. Preoperative antibiotics were administered. The patient's abdomen was prepped and draped in the standard sterile fashion. Surgical timeout was performed and all parties were in agreement that this was the correct patient and procedure to be performed and we continued as planned. An incision was made in the left upper quadrant just below the ribs and the Veress needle was inserted. Saline drop test confirmed entry into the abdomen. The abdomen was insufflated with carbon dioxide to the patient tolerated without incident. The abdomen was then entered using the Optiview technique and a 5 mm port. The introducer was removed and the abdomen inspected. There were 2 large hernia defects, the low midline defect was larger than the ostomy site defect. There was bowel still incarcerated within the ostomy site hernia. There was also a small umbilical hernia. No damage from initial trocar placement or Veress needle placement was identified. 5 mm ports were then placed in the left lower quadrant and in the left subcostal position. Laparoscopic lysis of adhesions was performed with blunt dissection and the Sonicision. The incarcerated bowel in the ostomy site hernia was reduced. The hernia defects were evaluated and due to their size along with the large redundant hernia sacs we elected to perform the repair open. Midline incision was made starting just above the umbilicus and extended down towards the pubic symphysis. This was deepened down through the subcutaneous tissue with electrocautery. The hernia sacs were identified and dissected away from the surrounding subcutaneous tissue. The hernia sacs were then resected and then passed off the table as specimen. The fascia was cleared of investing tissue in all directions. The hernia defects were evaluated and the low midline incisional hernia defect measured 8 cm x 7 cm in size. There was an umbilical defect that measured 2 cm in size. The ostomy site defect measured approximate 4 cm x 3.5 cm in size. There was a 4 cm muscle and fascial bridge between the low midline incision and the ostomy site. We elected to perform repair of the hernia defects with partial component separation and an onlay mesh. Relaxing incisions were made just lateral to the rectus muscle on both sides for several centimeters superior and inferior to the defect. This allowed for tension-free repair of the midline incisional hernia defect. The fascia was then closed with interrupted #1 Prolene [id number]-dq-[id number] sutures starting above the umbilical defect to reapproximate a portion of the diastases. This was continued along the entire midline down to 2 to 3 cm below the inferior portion of the fascial defect. The ostomy site hernia was then closed in an oblique fashion with interrupted #1 Prolene frlvth-sk-zhbka sutures. A 20 x 20 cm piece of OviTex 1S mesh was selected and cut to fit. Care was taken to cover each of the defects by several centimeters. It was then sutured into place in an onlay fashion using interrupted #1 Prolene mattress sutures. It was secured in a clockwise fashion and secured to the midline as well as the areas of the relaxing incision and overlying the ostomy site repair. The fascia was injected with Exparel mixed with 0.5% Marcaine. The wound was irrigated and hemostasis appeared to be excellent. A NORMA drain was then placed overlying the mesh and exited through the left upper quadrant port site, and was secured into place with 2-0 nylon suture. The other port sites were closed with 4-0 Monocryl suture. The umbilicus was tacked down to the midline and the incision was closed with interrupted 3-0 Vicryl deep dermal sutures. The skin was then closed with giovanny. Sterile dressing was applied. An abdominal binder was placed. The patient was extubated in the operating room and taken to the PACU where she recovered without apparent incident. All sponge, instrument and needle counts were correct at the conclusion of the procedure. The patient tolerated the procedure well. The physician's field technical assistant was present and scrubbed for the entire the case. He was critical in positioning the patient, prepping and draping, retraction and exposure, driving the laparoscope, repair of the hernia, closure of the incisions, and placement of the dressings. I attest to the content of the Intraoperative Record and any orders documented therein. Any exceptions are noted below.
--- NOTE | 2021-05-16 12:20 | Anesthesiology Progress Note ---
Date of Service May 16, 2021 Anesthesia Post Procedure Vital Signs Vital Signs: Temp Pulse Pulse Resp BP Pulse Ox 05/16/21 12:15 96.8 F L 50 L 20 149/75 H 97 05/16/21 12:05 52 L 16 150/73 H 97 05/16/21 11:55 56 L 16 111/83 99 05/16/21 11:45 55 L 16 139/77 99 05/16/21 11:35 59 L 18 143/109 H 99 05/16/21 11:25 66 16 133/85 99 05/16/21 11:19 98.1 F 71 18 125/94 98 05/16/21 06:52 97.7 F 70 16 175/88 H 98 Pain Intensity Abdomen: Pain Intensity: 3 Transfer of Care Handoff Completed per policy Notes Mental Status: alert / awake / arousable and participated in evaluation Patient Amnestic to Procedure: Yes Nausea / Vomiting: adequately controlled Pain: adequately controlled Airway Patency, RR, SpO2: stable & adequate BP & HR: stable & adequate Hydration State: stable & adequate Anesthetic Complications: no major complications apparent and Pt Satisfied with anesthetic care
[2021-05-16] MEDS ORDERED: MoRPHine SULFATE 2 MG/ML CARP IV PRN (13:32)
[2021-05-16] MEDS ORDERED: MoRPHine SULFATE 4 MG/ML 1 ML CARP\\VIAL IV PRN (13:32)
[2021-05-16] MEDS: LACTATED RINGER'S 1,000 ML IV SCH (14:00)
[2021-05-16] MEDS: ceFAZolin 2000MG 2,000 MG/15 ML SYR IV SCH (17:46)
[2021-05-16] MEDS: ACETAMINOPHEN 500 MG TAB PO PRN (20:00)
[2021-05-17] MEDS: LACTATED RINGER'S 1,000 ML IV SCH (02:53)
[2021-05-17] MEDS: ceFAZolin 2000MG 2,000 MG/15 ML SYR IV SCH ×2 (02:53→10:14)
[2021-05-17 06:20] LABS: Basophils # (auto) 0.01 K/uL (0-0.2); Basophils % (auto) 0.1 %; Eosinophils # (auto) 0.01 K/uL (0-0.5); Eosinophils % (auto) 0.1 %; Hematocrit (blood only) 35.9 % (37-47); Hemoglobin 11.6 g/dL (12.0-16.0); Immature Granulocytes # (auto) 0.01 K/uL (0.00-0.02); Immature Granulocytes % (auto) 0.1 %; Lymphocytes # (auto) 1.47 K/uL (1.2-3.4); Lymphocytes % (auto) 17.1 %; Mean Corpuscular Hemoglobin 31.3 pg (25-34); Mean Corpuscular Hgb Conc 32.3 g/dL (32-36); Mean Corpuscular Volume 96.8 fL (80-100); Mean Platelet Volume 9.3 fL (7.4-10.4); Monocytes # (auto) 0.85 K/uL (0.11-0.59); Monocytes % (auto) 9.9 %; Neutrophils # (auto) 6.25 K/uL (1.4-6.5); Neutrophils % (auto) 72.7 %; Platelet Count 208 K/uL (130-400); RDW Coefficient of Variation 14.2 % (11.5-14.5); RDW Standard Deviation 50.4 fL (36.4-46.3); Red Blood Count 3.71 M/uL (4.2-5.4)
[2021-05-17 06:49] LABS: BUN Creatinine Ratio 14.9 (10-20); Calcium 8.5 mg/dl (8.5-10.1); Creatinine Clr Calc Pharmacy 60.3 ml/min; Est GFR (African American) 89.9 ml/min; Est GFR (Non-African American) 77.6 ml/min; Potassium 4.4 mmol/L (3.5-5.1)
[2021-05-17] MEDS ORDERED: oxyCODONE/ACETAMINOPHEN 5mg/325mg TAB PO PRN (08:06)
--- NOTE | 2021-05-17 08:10 | Surgery Progress Note ---
Date of Service May 17, 2021 Assessment & Plan (1) Incisional hernia: Plan: POD 1 repair multiple incisional hernias advance diet as khurram continue binder/drain transition to po analgesics stop IVF Admission and Anticipated Discharge Date Admission Date: May 16, 2021 Supervising Physician Co-Signing Physician Notes Patient seen and examined, labs reviewed, agree with above. 80-year-old female POD #1 component separation for incarcerated incisional and ostomy site hernias. Doing well, pain well controlled. Has been up and ambulated to the bathroom several times. Not much of an appetite. On exam afebrile with stable vitals, incisions clean dry and intact, abdomen soft, appropriately tender to palpation. NORMA with serosanguineous drainage. Labs unremarkable. We will plan for continued hospital stay, hope for discharge tomorrow once patient's mobility increases and her appetite increases. Out of bed to chair, ambulate, incentive spirometer. Subjective little more pain today but moving around more, sitting in chair, not much appetite-still on clears Physical Exam Gastrointestinal (Abdomen): Inspection/Auscultation: + abdominal surgical incision (binder in place) and + abdominal surgical drain present (170 cc total) Results & Data ([facility]) Vital Signs (Past 12 Hours) Vital Signs Temp Pulse Resp BP Pulse Ox 05/17/21 06:02 36.9 C 64 16 113/72 91 05/17/21 02:23 37.0 C 63 16 114/61 93 05/16/21 22:21 36.6 C 69 16 129/80 91 PG Care Time/CCT Total # of Minutes Spent Total Time Spent with Patient: Total time spent is greater than 50% in coordination of care (as documented) at patient's floor/unit and/or counseling patient: Coding Level of Care Code None Diagnoses Incisional hernia K43.2
[2021-05-17] MEDS: oxyCODONE/ACETAMINOPHEN 5mg/325mg TAB PO PRN (10:12)
[2021-05-17] MEDS: ACETAMINOPHEN 500 MG TAB PO PRN (16:35)
--- NOTE | 2021-05-18 06:36 | Surgery Progress Note ---
Date of Service May 18, 2021 Assessment & Plan (1) Incisional hernia: Plan: Patient is postop day #1 incisional herniorrhaphy Continue analgesics Continue antiemetics as needed Encourage use of incentive spirometry Mobilize as able (2) Hypoxia: Plan: Cause of hypoxia has not been delineated at this point. continues oxygen as able Doubt pneumonia as patient is afebrile and lungs are clear. This could be the result of hypoventilation as respiratory effort is slightly decreased due to abdominal pain We will proceed as follows: We will check a chest x-ray this morning which will help delineate if there are any infiltrates or component of atelectasis If no concerning findings on chest x-ray consideration may be given to obtaining a CT scan of the chest to evaluate for PE (although patient does not have tachycardia, pleuritic chest pain, or lower extremity swelling/pain) Admission and Anticipated Discharge Date Admission Date: May 16, 2021 Subjective Discussed with RN. I was notified last evening that patient had an episode of hypoxia with a reading of approximately 79% on room air. Patient was placed on 4 L of oxygen with pulse ox rising to 92%. Nurse noted the patient was not tachycardic was not complaining of any shortness of breath or chest pain and felt there is a component of hypoventilation with her hypoxia. Proximally 2 hours later nurse notified me that patient's oxygen was able to be weaned down to 2 L with a pulse ox of 93%. This morning I visited with the patient at bedside and she is resting comfortably in bed. Does note some pain at her surgical incision. She denies any shortness of breath. No fevers have been noted. Patient denies any pleurisy or pleuritic chest pain with deep inspiration. Denies any calf pain. She denies any nausea vomiting and has tolerated some liquids last night. Pulse ox was only 88% on room air and would rise to approximately 93 to 94% with 2 L of oxygen. Physical Exam Constitutional: well developed and well nourished; no acute distress Respiratory: No wheezing, rales, rhonchi noted. Lungs are overall clear with a slight decrease component at bases Gastrointestinal (Abdomen): Abdomen is nondistended. Bowel sounds are hypoactive. Dressing is noted to be clean, dry, intact. Patient has appropriat e tenderness at surgical incision. NORMA drain is in place draining serosanguineous fluid and has drained approximately 80 cc last shift. Musculoskeletal: No lower extremity swelling. No calf tenderness. Results & Data ([facility]) Vital Signs (Past 12 Hours) Vital Signs Temp Pulse Resp BP Pulse Ox 05/18/21 01:09 93 05/18/21 01:08 88 L 05/17/21 22:43 92 05/17/21 22:40 37.2 C 77 16 135/77 85 L PG Care Time/CCT Total # of Minutes Spent Total Time Spent with Patient: Total time spent is greater than 50% in coordination of care (as documented) at patient's floor/unit and/or counseling patient: Coding Level of Care Code None Diagnoses Incisional hernia K43.2 Hypoxia R09.02
--- NOTE | 2021-05-18 07:23 | XRay Report ---
XR chest 2V PA/lateral HISTORY: 80 years-old Female hypoxia acute hypoxia with recent ventral abdominal hernia repair COMPARISON: CT abdomen and pelvis 02/18/2021, chest radiograph 01/26/2021 TECHNIQUE: PA and lateral views of the chest FINDINGS: The cardiac silhouette is enlarged. No pneumothorax or large pleural effusion. Mild blunting of the c ostophrenic angles, most pronounced posteriorly. Large hiatal hernia which appears to contain both st omach and large bowel. There is gaseous distention of the large bowel. Degenerative changes of the sh oulders and spine. IMPRESSION: 1. Large hiatal hernia now containing loops of large bowel has increased in size from prior. 2. Cardiomegaly without pulmonary edema. 3. Blunting of the costophrenic angles suggests atelectasis versus trace pleural effusions. ACT 112: Negative or not required by law. The above report was generated using voice recognition software. It may contain grammatical, syntax o r spelling errors. Electronically signed by: Jeramie Black M.D. 05/18/2021 7:22 AM
[2021-05-18] MEDS: ACETAMINOPHEN 500 MG TAB PO PRN ×2 (07:36→16:09)
[2021-05-18] MEDS: ENOXAPARIN INJ 40 MG/0.4 ML SYR SQ SCH (10:30)
[2021-05-18] MEDS: oxyCODONE/ACETAMINOPHEN 5mg/325mg TAB PO PRN ×2 (11:17→21:55)
--- NOTE | 2021-05-18 14:11 | Surgery Progress Note ---
Date of Service May 18, 2021 Assessment & Plan (1) H/O hernia repair: Plan: POD#2 ventral hernia repair with component separation, doing well. Transient hypoxia resolved, no further workup at this time. ambulate, oobtc, IS start lovenox likely d/c tomorrow home with drain Admission and Anticipated Discharge Date Admission Date: May 16, 2021 Subjective POD#2 incarcerated incisional and stoma site hernia repair with component separation. Hypoxia overnight resolved with o2, improved this morning. Tolerated regular diet for lunch, though not very hungry. Pain controlled. Ambulating. Physical Exam Constitutional: WD/WN, vitals as above Gastrointestinal (Abdomen): normal bowel sounds, soft, nontender, no hepatosplenomegaly Inspection/Auscultation: + abdominal wall ecchymosis (mild, expected) and + abdominal surgical drain present (SS output) Percussion/Palpation: abdomen nontender, no guarding and no hernia Results & Data ([facility]) Vital Signs (Past 12 Hours) Vital Signs Temp Pulse Resp BP Pulse Ox 05/18/21 06:55 37.3 C 71 16 146/81 H 97 PG Care Time/CCT Total # of Minutes Spent Total Time Spent with Patient: Total time spent is greater than 50% in coordination of care (as documented) at patient's floor/unit and/or counseling patient: Coding Level of Care Code None Diagnoses H/O hernia repair Z98.890; Z87.19
[2021-05-18] MEDS: bisacodyL 5 MG TABEC PO SCH (16:09)
[2021-05-19] MEDS: ENOXAPARIN INJ 40 MG/0.4 ML SYR SQ SCH (08:20)
[2021-05-19] MEDS: bisacodyL 5 MG TABEC PO SCH (08:21)
--- NOTE | 2021-05-19 08:21 | Surgery Progress Note ---
Date of Service May 19, 2021 Assessment & Plan (1) H/O hernia repair: Plan: POD#3 ventral hernia repair with component separation Patient overall doing well. Has been on room air overnight and this AM Tolerating diet although not much appetite at baseline Pain controlled. Encouraged pt to take narcotic with some food if she needs it for pain Wounds c/d/i, NORMA drain serosang Will plan on possible discharge to home today with NORMA in place + abdominal binder. Will ask RN to provide NORMA drain teaching F/u in clinic with Dr. Leon within 1-2 weeks Admission and Anticipated Discharge Date Admission Date: May 16, 2021 Supervising Physician Co-Signing Physician Notes Pnt s&e, agree wtih above. POD#3 component separation. doing well, pain controlled, tolerating diet. d/c to home, f/u next for drain removal. drain teaching. return precautions given. Subjective Patient feeling okay this AM. Tolerating a diet, but only eating small amounts. Started passing some gas yesterday, no BM yet. Pain controlled. Had a bout of nausea yesterday when taking percocet on an empty stomach. Asking about discharging today. Physical Exam Physical Exam: awake/alert, sitting up in chair Respiratory: normal respiratory effort (on room air) Gastrointestinal (Abdomen): Inspection/Auscultation: + abdominal surgical incision (c/d/i) and + abdominal surgical drain present (serosang); abdomen not distended Percussion/Palpation: abdomen soft Results & Data ([facility]) Vital Signs (Past 12 Hours) Vital Signs Temp Pulse Resp BP Pulse Ox 05/19/21 07:05 36.7 C 96 H 16 140/62 94 05/18/21 22:36 36.8 C 85 15 125/78 93 PG Care Time/CCT Total # of Minutes Spent Total Time Spent with Patient: Total time spent is greater than 50% in coordination of care (as documented) at patient's floor/unit and/or counseling patient: Coding Level of Care Code None Diagnoses H/O hernia repair Z98.890; Z87.19
[2021-05-19] MEDS ORDERED: SIMVASTATIN 20 MG TAB PO SCH (09:00)
--- NOTE | 2021-05-22 12:25 | Discharge Summary ---
Date of Service May 19, 2021 Admission HPI Per Admitting Provider 80 y/o female known to me from prior hospitalization here for follow up. Admitted a few months ago with SBO related to known ostomy site hernia, resolved with reduction and non operative treatment. No issues since except for her chronic constipation. Would like to have hernias fixed. Surgery delayed due to COVID pandemic. No changes since last visit. Principal Diagnosis Multiple incisional hernias with incarceration Discharge Exam Constitutional WD/WN, vitals as above Gastrointestinal (Abdomen) Inspection/Auscultation: + abdominal surgical incision (clean, dry) and + abdominal surgical drain present; abdomen not distended Percussion/Palpation: abdomen soft Discharge Data Allergies Allergy/AdvReac Type Severity Reaction Status Date / Time Penicillins Allergy Unknown unsure of Verified 05/01/21 09:01 reaction Procedures Performed Operation Date: 05/16/21 08:20 Actual Procedures p Laparoscopic Lysis of Adhesion, Repair of Incarcerated Incisional Hernia Repairs with Component Separation - Mickey Leon DO, FACS Hospital Course (1) Incisional hernia: 80 y/o female with midline and RLQ 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 She was transferred to the surgical floor for observation. Her activity and oral intake were limited over the first 24 hours. She then had some overnight hypoxia which improved during the second day. By day 3 she was tolerating diet and oral analgesics. She was stable for discharge home with NORMA drain to be removed in the office in a few days.. Total Time Total Time Spent Total Time Spent (In Minutes): 15 Discharge Plan Discharge Items Patient Disposition: Home - Self-Care Reason For Visit: Incisional and Ostomy Site Hernia Discharge Diagnosis: Hernia repair Activity: As commented below Lifting: No more than 10 pounds Bathing Comment: ok to shower; take bandages off to shower Exercise/Sports: Wait until after follow-up appointment Driving/Machine Use: no driving while taking narcotics for pain Non-emergency contact: Surgeon Call non-emergency contact if: you have any medication questions, your pain is not controlled, your pain is concerning for you, you have a fever, your temperature is above 101.5, your wound has increased redness, your wound has increased drainage and your wound pain has increased Follow-up/Referrals: Mickey Leon DO, FACS [Physician] - (In 1-2 weeks as planned or call if you do not have an appt) Brie Kelley MD [Primary Care Provider] - 05/24/21 10:30 am (You are scheduled with Nicolette MIDDLETON) Diet: Regular Addtl Attending Provider Instructions: You have been prescribed a narcotic called Percocet to take if needed for moderate to severe pain. Percocet has Tylenol in it. Do not take Percocet and Tylenol concurrently as they both contain Acetaminophen and you should not exceed >3grams of Acetaminophen within a 24 hour time period. If you do not require the narcotic for pain you may take plain Tylenol instead, just be sure not to exceed the maximum daily dose. Please care for your NORMA drain as you have been instructed prior to discharge from the hospital. Empty drain 2-3 times daily and record output. Please change the dressing over your incision and surgical drain daily with dry 4x4 gauze and medical tape. Pending Studies at Discharge: No Stand-Alone Forms: [facility] Medications and DC Order Prescriptions: New oxycodone-acetaminophen [Percocet] 5-325 mg tablet 1 - 2 tab PO .q4-6h PRN (Reason: pain, for initial therapy, max 6 tabs per day) Qty: 15 RF: 0 Continued bisacodyl [Dulcolax (bisacodyl)] 5 mg Tablet,Delayed Release (Dr/Ec) 5 mg PO HS PRN (Reason: Constipation) RF: 0 simvastatin [Zocor] 20 mg tablet 20 mg PO QAM RF: 0 Discharge Orders: Discharge Order (Routine); Ordered 05/19/21 Ordered By: Corina Carmen/Other Patient Handouts: Peterson Kumar Drain Tube Dc Admission Data Admit Date/Time: 05/16/21 11:22 Attending Provider: Mickey Leon Admit Provider: Mickey Leon Primary Care Provider: Brie Kelley Other Providers: Lee Villareal ; [place] Other Interventions: Discharge Summary Assessment (RN) Last Done: 05/19/21 10:48 Coding Level of Care Code D/C DAY MANAGEMENT <30 MINS Diagnoses Incisional hernia K43.2
== END 2021-05-19 12:52 | disposition home or self-care (01) ==
LOC: ASU 06:28 → 3N 06:28